=== PATIENT | male | born 1945 | race Caucasian/White ===

== ENCOUNTER → 2018-09-19 10:51 | Outpatient (CLI) | payer OTHER, SELFPAY ==
--- NOTE | 2018-09-26 16:28 | PM.PFT.1 ---
Pulmonary Function Test Referral & Results Date Patient Seen: 09/19/18 Requesting provider: Mauricio Quinones Indication: Dyspnea Results: The spirometry demonstrates an FVC of 2.84 L which is 54% of predicted. The FEV1 was measured at 2.38 L which is 62% of predicted. The FEV1/FVC ratio was 80 for which is 114% of predicted. Following the administration of bronchodilator there was no appreciable change. Lung volumes show an SVC of 3.02 L which is 57 of predicted. The diffusing capacity was measured at 27.20 which is 69% of predicted. No hemoglobin value was provided, so no correction for potential anemia could be made, if appropriate. The maximum voluntary ventilation was normal Interpretation: This study demonstrates moderate obstructive lung disease based on reduction in FEV1 with no significant benefit following bronchodilator administration There is also moderate restrictive lung disease present. There is also a moderate reduction in diffusing capacity suggesting an element of disease at the capillary alveolar level Clinical correlation suggested
== END ==
PROVIDERS: Family Provider Family Medicine; PCP Family Medicine; Visit Provider Family Medicine
DX: R06.00 Dyspnea, unspecified (principal); E66.9 Obesity, unspecified
CPT/HCPCS: 94060; 94726; 94729

== ENCOUNTER → 2018-10-06 10:21 | Outpatient (CLI) | payer OTHER, SELFPAY ==
--- NOTE | 2018-10-06 | DI.RAD.S_ITS ---
PROCEDURE: XR CHEST 2V INDICATIONS: SHORTNESS OF BREATH TECHNIQUE: 2 views of the chest were acquired. COMPARISON: DARWIN Thompson, XR CHEST 2 VIEWS, 12/11/2017, 16:35. FINDINGS: Surgical changes and devices: None. Lungs and pleura: There is chronic right hemidiaphragm elevation, unchanged. Lungs are clear. No pleural effusions or pneumothorax. Mediastinum: Mediastinal contours are normal. Heart size is normal. Bones and chest wall: No suspicious bony abnormalities. Soft tissues appear unremarkable. IMPRESSION: No acute cardiopulmonary disease. Chronic right hemidiaphragm elevation. Dictated by: Charo Easley M.D. on 10/06/2018 at 10:54 Approved by: Charo Easley M.D. on 10/06/2018 at 11:00
== END ==
PROVIDERS: Family Provider Internal Medicine Critical Care Medicine; PCP Family Medicine; Visit Provider Family Medicine
DX: R06.02 Shortness of breath (principal)
CPT/HCPCS: 71046

== ENCOUNTER → 2019-02-16 15:37 | Outpatient (CLI) | payer OTHER, SELFPAY ==
[2018-12-02 16:02] VITALS: BMI 39.9
--- NOTE | 2019-02-16 | DI.RAD.S_ITS ---
PROCEDURE: XR SHOULDER RT MIN 2V INDICATIONS: RIGHT SHOULDER PAIN TECHNIQUE: 3 views of the shoulder were acquired. COMPARISON: None. FINDINGS: Bones: No fractures or dislocations. No suspicious bony lesions. Visualized ribs appear intact. There are mild degenerative changes of the right acromioclavicular and glenohumeral joints. Soft tissues: No suspicious soft tissue calcifications. Partially imaged cardiac pacer wires are identified. IMPRESSION: Mild degenerative changes of the right acromioclavicular and glenohumeral joints. Dictated by: Damon Harkins M.D. on 02/16/2019 at 16:57 Approved by: Damon Harkins M.D. on 02/16/2019 at 16:59
== END ==
PROVIDERS: Family Provider Internal Medicine Critical Care Medicine; PCP Family Medicine; Visit Provider Family Medicine
DX: M19.011 Primary osteoarthritis, right shoulder (principal); M25.511 Pain in right shoulder
CPT/HCPCS: 73030

== ENCOUNTER 2019-03-09 14:00 | Outpatient (RCR) | payer OTHER, SELFPAY ==
[2018-12-02 16:02] VITALS: BP 124/72; BP 124/74; RESP 16; O2SAT 94; BMI 39.9
--- NOTE | 2018-12-02 16:25 | PR.IEVALNOTE ---
Current Diagnoses Shortness of breath (12/02/18) Provider Team Visit Care Team Role Provider Type Doctor MD Petra Non-Staff Specialty: Medical Address: Phone: Fax: Email: Mauricio Quinones MD Primary Care Provider Physician Specialty: Family Practice Address: [address] [place], [address] Email: Nati Montejo MD Attending Provider Non-Staff Family Provider Specialty: Pulmonology Address: [address] [place] [address], [phone] Email: Pulmonary Rehab Initial Evaluation [place] Pulmonary Rehab Inital Assessment Start: 12/02/18 16:02 Freq: Status: Active Protocol: Document 12/02/18 16:02 [facility] (Rec: 12/02/18 16:25 Tres [id number]) [place] Exercise Assessment Dx: Asthma/COPD Comment semi paralysis right diaphragm Primary Language FRENCH Gm Required No Hearing Ability Normal Visual Impairment No Limitations Visual Difficutly None Visual Assist Magnifying Glass Musculoskeletal Symptoms Abnormal Gait Difficulty Walking Joint Pain Muscle Weakness Body Alignment Posture Forward Head Leaning Rigid Assistive Devices None Comment no current exercise [place] Vital Signs Pulse Oximetry (91-100 %) 94 Nasal Cannula No Respiratory Rate (12-24 breaths/min) 16 Respiratory Effort Non-Labored Respiratory Depth Normal Assessment clear to auscultation no wheezes, rhonchi, crackles right lower lobe decreased Right Arm Blood Pressure (90/60-140/90 mmHg) 124/72 Blood Pressure Method Manual Cuff/Auscultation Blood Pressure Position Sitting Left Arm Blood Pressure (90/60-140/90 mmHg) 124/74 Blood Pressure Method Manual Cuff/Auscultation Blood Pressure Position Sitting [place] Six Minute Walk Test Oxygen Delivery Method Room Air Respiratory Rate (breaths/min) 16 Pulse Rate (beats/min) 66 O2 Saturation by Pulse Oximetry (%) 94 Pulse Rate (beats/min) 85 Ambulation Distance (feet) 200 O2 Saturation by Pulse Oximetry (%) 92 Pulse Rate (beats/min) 91 Ambulation Distance (feet) 200 O2 Saturation by Pulse Oximetry (%) 91 Pulse Rate (beats/min) 89 Ambulatory Distance (feet) 150 O2 Saturation by Pulse Oximetry (%) 92 Respiratory Rate (breaths/min) 22 Pulse Rate (beats/min) 89 Ambulation Distance (feet) 100 O2 Saturation by Pulse Oximetry (%) 91 Respiratory Rate (breaths/min) 24 Pulse Rate (beats/min) 90 Ambulation Distance (feet) 100 O2 Saturation by Pulse Oximetry (%) 91 Respiratory Rate (breaths/min) 24 PUlse Rate (beats/min) 105 Ambulation Distance (feet) 50 O2 Saturation by Pulse Oximetry (%) 89 Respiratory Rate (breaths/min) 18 Pulse Rate (beats/min) 78 O2 Saturation by Pulse Oximetry (%) 94 Activity Tolerance Poor Adverse Reactions Pulse Increase > 20 bpm Increased Shortness of Breath Musculoskeletal Pain Unsteady Gait Staggering Distance 850 Darlene RPE Scale 15 Oriented to RPE Scale Yes Dyspnea 5 Oriented to Dyspnea Scale Yes [place] Exercise Goals Exercise Goals progression of exercise training will result from increases in time, intensity, and frequency.Initial emphasis will be on increasing time Exercise Goals Demonstrate proper technique with pursed lip breathing demonstrate paced breathing techniques with ADL's on stairs, etc demonstrate proper technique with respiratory medications DASI Number and Comment 5.27 Short Term improve stamina and core strength 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 Volume/Forced Vital Cap 84 Ratio (FEV1/FVC Ratio) Forced Expiratory Volume in 1 sec. 2.38 62% Diffusing Capacity of the Lung (DLCO) 69 History of Diabetes Yes Type Type 2 Oral Diabetic Medication Agents metformin 599mg in AM On Insulin No Glucose Monitoring No Admit Height 190.5 cm Admit Weight 145.15 kg Admit Body Mass Index (BMI) 39.9 Liters Per Minute at Rest ra Liters per Minute with ADL's ra Liters per Minute with Sleep ra Liters per Minute with Exercise ra Oxygen Intervention/Education ra High Energy Periods Mid-Morning Afternoon Mid-Afternoon Tolerates Activity Poor Signs and Symptoms Activity Intolerance Dyspnea on Exertion Fatigue on Exertion Weakness on Exertion Daytime Naps Yes NC Education Pre-Test Score 79% Tobacco Use Former, Quit >6 Months Use Yes Concerns None Education Topics Breathing Retraining Discussed Education Requirements on Yes Intake [place] Psychosocial Initial Assess HADS Score 12 HADS Score 3 Marital Status Physician Comment Ready for Pulmonary Rehabilitation Cooperative Motivated
[2019-02-05 16:19] VITALS: BMI 38.9
--- NOTE | 2019-02-05 16:26 | PR.REVALNOTE ---
Current Diagnoses Shortness of breath (02/05/19) Provider Team Visit Care Team Role Provider Type Doctor MD Petra Non-Staff Specialty: Medical Address: Phone: Fax: Email: Mauricio Quinones MD Primary Care Provider Physician Specialty: Family Practice Address: [address] [place], [address] Email: Nati Montejo MD Attending Provider Non-Staff Family Provider Specialty: Pulmonology Address: [address] [place], [phone] Email: Pulmonary Rehab Re-Evaluation [place] Pulmonary Rehab. Re-Assessment Start: 12/02/18 16:02 Freq: Status: Active Protocol: Document 01/21/19 13:33 [facility] (Rec: 01/21/19 13:34 [facility] [id number]) [place] Exercise Re-Assessment New Session Number 1-12 Type Treadmill DESTINI Interval Training Yes Shortness of Breath with Exercise Yes Desaturation with Exercise No [place] Education Re-Assessment Goals Pt will Master PLB and Diaphragmatic Breathing Pt will Master Energy Conserving Techniques Pt will learn exercise safety Pt will continue ED topics until completion Document 02/05/19 16:19 [facility] (Rec: 02/05/19 16:26 [facility] [id number]) [place] Exercise Re-Assessment New Session Number 12-24 Type Treadmill DESTINI METs (resistance level) 3.12 destini 5.29 TM % Improvement 71% TM 14%DESTINI Interval Training Yes: 6.79 DESTINI Shortness of Breath with Exercise Yes Desaturation with Exercise No Free Weight Yes Band Level Yes [place] Nutrition Re-Assessment Height 190.5 cm Weight 141.521 kg Current BMI (BMI) 38.9 Progress to Weight Goal Yes: 8 LBS LOSS Goals Pt will continue focusing on weight loss Pt will continue to learn tips [place] Education Re-Assessment Topics Normal Anatomy and Physiology Chronic Lung Disease Description and Interpretation Medical Tests Breathing Retraining Bronchial Hygiene Medication Benefits of Exercise Eating Right Goals Pt will Master PLB and Diaphragmatic Breathing Pt will Master Energy Conserving Techniques Pt will learn exercise safety Pt will continue ED topics until completion [place] Psychosocial Re-Assessment Patient in Class Regularly Yes Interventions Pt attending class regularly Goals Pt will continue to attend classes 3x wk Participate in social and educational discussion Received emotional support from family/friends
--- NOTE | 2019-03-10 11:22 | PR.DCNOTE ---
Current Diagnoses Shortness of breath (03/09/19) Past Medical History (Last Reviewed 03/04/19 @ 12:46 by Yariel Nesbitt MD) Anemia (Acute) Hemorrhoids (Acute) DJD (degenerative joint disease) (Chronic) Diabetes (Chronic) GERD (gastroesophageal reflux disease) (Chronic) HTN (hypertension) (Chronic) History of atrial fibrillation (Chronic) History of depression (Chronic) Hx of cardiac pacemaker (Chronic) Hx of cardiovascular disorder (Chronic) Hx of kidney disease (Chronic) Hx of lung disease (Chronic) Hx of obesity (Chronic) Hyperlipidemia (Chronic) Migraine (Chronic) Sleep apnea (Chronic) Provider Team Visit Care Team Role Provider Type Doctor MD Petra Non-Staff Specialty: Medical Address: Phone: Fax: Email: Mauricio Quinones MD Primary Care Provider Physician Specialty: Family Practice Address: [facility] [place], [address] Email: [email or web address] Nati Montejo MD Attending Provider Non-Staff Family Provider Specialty: Pulmonology Address: [address] [place] [address], [phone] Email: Pulmonary Rehab Discharge Evaluation [place] Pulmonary Rehab. [place] Assessment Start: 12/02/18 16:02 Freq: Status: Active Protocol: Document 03/09/19 16:00 [facility] (Rec: 03/09/19 16:00 [facility] [id number]) [place] Exercise Discharge Assess Session 2 Type DESTINI METs (resistance level) 4.16 % Improvement 56% Interval Training Yes: 14.00 Mets Shortness of Breath with Exercise Yes Desaturation with Exercise No Session 1 Type Treadmill METs (resistance level) 3.47 % Improvement 47% Interval Training Yes: 6.61 Mets Shortness of Breath with Exercise Yes: semi-paralysis of hemidiaphragm Desaturation with Exercise No Free Weight Yes: #5 12r 2s Band Level Yes: #5 Toward Target Goals increased participation in physical activities, including domestic and recreational activities (ie:resumed playing golf) improved functional capacity with improved endurance and strength [place] Nutrition DC Assessment Weight 142.428 kg Weight Goal Met No: pt continues to progress towards goal Goals Pt will continue focusing on weight gain Pt will continue to learn tips Patient Ready Yes Reason Completed Max Sessions [place] Education DC Assessment Tobacco Use No [place] Psychosocial DC Assessment HADS Depression Score 7 HADS Anxiety Score 2 Phase III Yes Referral Needed No Goals Demonstrates proper technique with PLB-goal met Demonstrates breath sequencing with ADL's, stairs,etc.-goal met Demonstrates proper technique with respiratory medications- goal met Verbalized understanding of Asthma Action Plan-goal met [place] Six Minute Walk Test Oxygen Delivery Method Room Air Respiratory Rate (breaths/min) 14 Pulse Rate (beats/min) 60 O2 Saturation by Pulse Oximetry (%) 95 Pulse Rate (beats/min) 78 Ambulation Distance (feet) 200 O2 Saturation by Pulse Oximetry (%) 98 Pulse Rate (beats/min) 78 Ambulation Distance (feet) 200 O2 Saturation by Pulse Oximetry (%) 98 Pulse Rate (beats/min) 86 Ambulatory Distance (feet) 200 O2 Saturation by Pulse Oximetry (%) 98 Pulse Rate (beats/min) 89 Ambulation Distance (feet) 200 O2 Saturation by Pulse Oximetry (%) 88 Respiratory Rate (breaths/min) 20 Pulse Rate (beats/min) 94 Ambulation Distance (feet) 150 PUlse Rate (beats/min) 96 Ambulation Distance (feet) 200 O2 Saturation by Pulse Oximetry (%) 94 Respiratory Rate (breaths/min) 16 Pulse Rate (beats/min) 68 O2 Saturation by Pulse Oximetry (%) 94 Activity Tolerance Good Adverse Reactions Increased Shortness of Breath Distance 1150 Darlene RPE Scale 13 Oriented to RPE Scale Yes Dyspnea 4 Oriented to Dyspnea Scale Yes
== END 2019-03-11 10:49 | disposition home or self-care (01) ==
LOC: PUL 14:00
PROVIDERS: Family Provider Internal Medicine Critical Care Medicine; PCP Family Medicine; Visit Provider Internal Medicine Critical Care Medicine
DX: R06.02 Shortness of breath (principal)
CPT/HCPCS: G0424

== ENCOUNTER 2019-04-17 14:50 | Day surgery (SDC) | payer OTHER, SELFPAY ==
[2018-12-02 16:02] VITALS: BMI 39.9
--- NOTE | 2019-04-17 | PATH_ITS ---
[facility] Accession Number: [id number] . 01 Material submitted: . PART A: duodenum - DUODENUM BIOPSIES PART B: gastrointestinal site - ANTRUM BIOPSIES PART C: gastrointestinal site - FUNDUS BIOPSIES PART D: esophagus, E-G Junction - GE JUNCTION 6 O'CLOCK PART E: esophagus, E-G Junction - GE JUNCTION 9 O'CLOCK PART F: esophagus, E-G Junction - GE JUNCTION 3 O'CLOCK PART G: esophagus, E-G Junction - GE JUNCTION 12 O'CLOCK PART H: gastrointestinal site - BODY BIOPSIES . 02 Diagnosis: A. Duodenum, Biopsies: Duodenal mucosa with foveolar metaplasia, consistent with peptic duodenitis. Negative for active inflammation, features of sprue, dysplasia or malignancy. . B. Antrum, Biopsies: Superficial fragments of gastric antral mucosa with no diagnostic abnormality. No evidence of Helicobacter organisms on H/E stain. Negative for intestinal metaplasia, dysplasia or malignancy. . C. Fundus, Biopsies: Gastric body-type mucosa with minimal chronic inflammation. No evidence of Helicobacter organisms on H/E stain. Negative for intestinal metaplasia, dysplasia or malignancy. . D. Gastroesophageal Junction, 6 o'clock, Biopsy: Squamous epithelium with no diagnostic abnormality. Columnar mucosa not sampled. Negative for dysplasia or malignancy. . E. Gastroesophageal Junction, 9 o'clock, Biopsy: Squamocolumnar junctional mucosa with no diagnostic abnormality. Negative for specialized intestinal metaplasia, dysplasia or malignancy. . F. Gastroesophageal Junction, 3 o'clock, Biopsy: Squamous epithelium with no diagnostic abnormality. Columnar mucosa not sampled. Negative for dysplasia or malignancy. . G. Gastroesophageal Junction, 12 o'clock, Biopsy: Squamous epithelium with mild chronic inflammation, consistent with reflux esophagitis. Columnar mucosa not sampled. Negative for dysplasia or malignancy. . H. Body, Biopsies: Gastric body-type mucosa with minimal chronic inflammation. No evidence of Helicobacter organisms on H/E stain. Negative for intestinal metaplasia, dysplasia or malignancy. [facility] 04/20/2019 1532 Local . 02 Electronically signed: . Ezio Balbuena MD, PhD, Pathologist NPI- [id number] . 01 Gross description: . (A) Received in formalin, labeled duodenum biopsies, is a fragment of garcia tissue (0.4 x 0.2 by less than 0.1 cm). Entirely submitted in cassette A1. (B) Received in formalin, labeled antrum biopsy, is a fragment of garcia tissue (0.2 x 0.1 by less than 0.1 cm). Entirely submitted in cassette B1. (C) Received in formalin, labeled fundus biopsy, is a fragment of crane-garcia tissue (0.3 x 0.1 by less than 0.1 cm). Entirely submitted in cassette C1. (D) Received in formalin, labeled GE junction 6 o'clock, are multiple fragments of crane-white tissue (0.2 x 0.1 by less than 0.1 cm in aggregate). Entirely submitted in cassette D1. (E) Received in formalin, labeled GE junction 9 o'clock, is a fragment of crane-white tissue (0.2 x 0.1 by less than 0.1 cm). Filtered and entirely submitted in cassette E1. (F) Received in formalin, labeled GE junction 3 o'clock, is a fragment of crane-white tissue (0.2 by less than 0.1 by less than 0.1 cm). Filtered and entirely submitted in cassette F1. (G) Received in formalin, labeled GE junction 12 o'clock, is a fragment of crane-white tissue (0.2 by less than 0.1 by less than 0.1 cm). Filtered and entirely submitted in cassette G1. (H) Received in formalin, labeled body biopsies, are multiple fragments of garcia tissue (0.3 x 0.2 x 0.1 cm in aggregate). Filtered and entirely submitted in cassette H1. ([id number]) /MRV 04/18/20192058 Local . 02 Pathologist provided ICD-10: K92.1, K21.9, K29.70 . 02 CPT . 059088, [id number], 665963, 657966, 445061, 789854, [id number], [id number] Performed at: 01 [facility] [address] [id number] MD Mann Lucero MD Phone: [phone] Performed at: [address] [facility] [id number] [place], [place] [id number] MD Kae Hooker MD Phone: [phone]
[2019-04-17 15:18] VITALS: BP 131/68; PULSE 65; RESP 15; TEMP 36.1; O2SAT 97; BMI 36.8
--- NOTE | 2019-04-17 15:25 | PM.PREOP ---
Pre-operative Note Interval Note History & Physical reviewed/Exam performed by Physician: Yes Changes to H&P: No ASA Class (for procedural sedation): III
--- NOTE | 2019-04-17 15:26 | PM.OP.ENDO ---
Operative Date/Time/Diagnoses Date of procedure: 04/17/19 Time of procedure: 15:26 Pre-op diagnosis: 1. Anemia, acute blood loss Post-op diagnosis: other (1. Peptic ulcer disease, 2. Hiatal hernia, moderate, 3. Irregular Z-line) Procedure & Clinicians Study performed: EGD Same procedure as scheduled: Yes Indications: Anemia, acute blood loss Surgeon: Veronica Wells Procedure Notes Procedure in detail: ENDOSCOPIST: Veronica Wells MD ANESTHESIOLOGIST: Kevin Okeefe MD PROCEDURE: EGD with biopsy INDICATIONS: 1. Acute blood-loss anemia MEDICATION: general anesthesia ASA Ratin DURATION OF PROCEDURE: 19 minutes. COMPLICATIONS: None. LIMITATIONS: None EXTENT OF PROCEDURE: Third portion of the Duodenum. PROCEDURE: The high-definition gastroduodenoscope was introduced into the posterior oropharynx under direct vision after general anesthesia was achieved and proper informed consent taken. The esophagus was identified and intubated under direct visualization. The scope was quickly passed through the esophagus and into the fundus of the stomach. A clear fundal pool was aspirated. The scope was then advanced to the antrum and the pylorus was identified. The scope was passed through the pylorus into the second and third portions of the duodenum. No abnormalities were noted in the duodenum, duodenal bulb or pyloric channel. Random biopsy taken x2. The antrum had superficial hyperemia and ulcers at very stages of healing, none actively bleeding; targeted biopsies taken near base of ulcers x2. J maneuver was produced. Peptic ulcer disease continued throughout the proximal body, fundus and cardia, targeted biopsies taken x2. A moderate-sized hiatal hernia was noted. Scope was broken out of the J maneuver and the remainder of the stomach was carefully inspected upon withdrawal and was significant for superficial hyperemia. The stomach was carefully deflated of all air on withdrawal. The distal esophagus was carefully inspected and Z-line was noted to be irregular, 4 quadrant biopsies taken. The remainder of the esophagus was normal upon withdrawal. The larynx and vocal cords appeared to be unremarkable. IMPRESSION: 1. Peptic ulcer disease, antrum, body, fundus 2. Gastritis 3. Hiatal hernia, moderate 4. Irregular Z-line with endoscopically suspicious esophageal mucosa, C2M4 PLAN: 1. Follow-up in clinic status post pathology results. 2. Recommend omeprazole 40 mg p.o. b.i.d., 30 minutes prior to meals x 6 weeks. May need triple therapy for H pylori disease after biopsies return. Will discuss in detail at time of follow-up. The possibility of missed lesion including a malignancy was discussed prior with the patient. Potential alarm symptoms have been discussed and should be reported by the patient immediately.
[2019-04-17] MEDS: HYOSCYAMINE 0.125 MG TABLET PO (15:28)
[2019-04-17] MEDS: SODIUM CHLORIDE 0.9% 1,000 ML 200 ML IV (15:28)
--- NOTE | 2019-04-17 15:33 | PM.OP.ENDO ---
Operative Date/Time/Diagnoses Date of procedure: 04/17/19 Time of procedure: 16:27 Pre-op diagnosis: 1. Anemia, acute blood loss 2. Hemorrhoids 3. Screening for colon cancer Post-op diagnosis: other (1. Normal colonoscopy, 2., diverticulosis, sigmoid, moderate 3. External hemorrhoids, nonthrombosed ) Procedure & Clinicians Study performed: Colonoscopy Same procedure as scheduled: Yes Indications: 1. Anemia, acute blood loss 2. Hemorrhoids 3. Screening for colon cancer Surgeon: Veronica Wells Procedure Notes SCOAP/Timeout: 15:54 Procedure in detail: ENDOSCOPIST: Veronica Wells MD ANESTHESIOLOGIST: Kevin Okeefe MD PROCEDURE: Colonoscopy INDICATIONS: 1. Anemia, acute blood loss 2. Hemorrhoids 3. Screening for colon cancer 4. History of colon polyps MEDICATION: Levsin 0.125 mg sublingual, incremental doses of Versed and fentanyl until appropriate level sedation achieved. ASA CLASS: 3 CECAL WITHDRAWAL TIME: 11 minutes COMPLICATIONS: None. EXTENT OF PROCEDURE: Cecum. QUALITY OF PREP: Good with portions of liquid stool. PROCEDURE: Prior to insertion of the colonoscope, a digital rectal examination was accomplished with circumferential palpation of the distal rectal mucosa without significant findings being noted. The high-definition colonoscope was passed into the rectum in the usual fashion and advanced over to the cecum without difficulty. The ileocecal valve, appendiceal stoma, and medial wall all could be inspected and no abnormalities were seen. ASCENDING COLON: As the colonoscope was withdrawn, care was taken to expose and inspect the haustral folds and no abnormalities were seen. HEPATIC FLEXURE: Normal no polyps, diverticula or other abnormalities. TRANSVERSE COLON: Normal no polyps, diverticula or other abnormalities. DESCENDING COLON: Normal no polyps, diverticula or other abnormalities. SIGMOID COLON: Moderate diverticulosis, otherwise no or other abnormalities. RECTUM: Normal. There was no significant perianal disease. The remainder of the rectum was inspected and there was minor external hemorrhoid disease. The scope was withdrawn. IMPRESSION: 1. Normal colonoscopy 2. Diverticulosis, sigmoid colon, moderate 3. External hemorrhoid disease, non-thrombosed 4. No endoscopic evidence for acute GI bleed in the lower intestinal tract. PLAN: 1. No endoscopic evidence for acute GI bleed in the lower intestinal tract. 2. Secondary to history of colon polyps, repeat colonoscopy in 5 years. The possibility of a missed lesion including a malignancy has been discussed with the patient previously. Potential alarm symptoms have been discussed and should be reported immediately. Scope withdrawal time: 11 minutes Sedation minutes: 35 Findings: diverticulosis and polyp Complications: none Impression: As above. Post-procedure Recommendations: Colonscopy in 5 years Follow up: weeks (2) Disposition: PACU
[2019-04-17 17:00] VITALS: BP 132/72; PULSE 60; RESP 17; TEMP 36.2; O2SAT 95
[2019-04-17 17:05] VITALS: BP 135/76; PULSE 60; RESP 13; O2SAT 94
[2019-04-17 17:10] VITALS: BP 135/76; PULSE 60; RESP 17; O2SAT 95
[2019-04-17 17:15] VITALS: BP 140/77; PULSE 60; RESP 14; O2SAT 96
--- NOTE | 2019-04-17 17:50 | SUR.PHASEII ---
pt was ready to discharge to home at 1720. Dr. Wells had long conversation with pt and (25 minutes) prior to leaving department
== END 2019-04-17 17:45 | disposition home or self-care (01) ==
PROVIDERS: Family Provider Internal Medicine Critical Care Medicine; PCP Family Medicine; Visit Provider Student in an Organized Health Care Education/Training Program
PROC: 0DJ08ZZ Inspection of Upper Intestinal Tract, Via Natural or Artificial Opening Endoscopic (ICD-10-PCS; CPT 43235; principal; 2019-04-17 16:00)
PROC: 0DJD8ZZ Inspection of Lower Intestinal Tract, Via Natural or Artificial Opening Endoscopic (ICD-10-PCS; CPT 45378; 2019-04-17 16:00)
DX: K29.70 Gastritis, unspecified, without bleeding (principal); D62 Acute posthemorrhagic anemia; K64.4 Residual hemorrhoidal skin tags; Z86.010 Personal history of colon polyps; K57.30 Diverticulosis of large intestine without perforation or abscess without bleeding; K25.9 Gastric ulcer, unspecified as acute or chronic, without hemorrhage or perforation; K44.9 Diaphragmatic hernia without obstruction or gangrene; K21.9 Gastro-esophageal reflux disease without esophagitis
CPT/HCPCS: 43239; 45378; J2704; J3010

== ENCOUNTER → 2019-07-02 10:26 | Outpatient (CLI) | payer OTHER, SELFPAY ==
[2018-12-02 16:02] VITALS: BMI 39.9
[2019-07-02 13:09] LABS: Thyroid Stimulating Hormone 1.48 uIU/mL (0.47-4.68)
[2019-07-04 13:27] LABS: IGA 142 mg/dL (70-320); IGG 1159 mg/dL (600-1540); IGM 65 mg/dL (50-300)
[2019-07-06 21:24] LABS: Protein, Total 6.7 g/dL (6.1-8.1)
[2019-07-07 14:39] LABS: Albumin 100 %; Protein/ Creatinine Ratio 148 mg/g creat (22-128); Total Urine Protein 10 mg/dL (5-25); Urine Creatinine, Random 68 mg/dL (20-320); Urine Protein Interpretation Normal pattern.
[2019-07-07 14:40] LABS: Albumin 3.8 g/dL (3.8-4.8); Alpha 1 Globulin 0.3 g/dL (0.2-0.3); Alpha 2 Globulin 0.8 g/dL (0.5-0.9); Beta 1 Globulin 0.5 g/dL (0.4-0.6)
== END ==
PROVIDERS: PCP Family Medicine; Visit Provider Psychiatry & Neurology Neurology
DX: G62.9 Polyneuropathy, unspecified (principal)
CPT/HCPCS: 36415; 82784; 84155; 84156; 84165; 84166; 84443

== ENCOUNTER → 2019-08-04 13:52 | Outpatient (CLI) | payer OTHER, SELFPAY ==
[2018-12-02 16:02] VITALS: BMI 39.9
--- NOTE | 2019-08-04 | DI.RAD.S_ITS ---
PROCEDURE: XR KNEE STANDING BI INDICATIONS: BILATERAL KNEE PAIN FREQENT FALLS TECHNIQUE: 3 views of the right knee, and 3 views of the left knee. COMPARISON: [facility], KNEE 3VW (LT), 11/08/2014, 8:44. [facility], CR, KNEE 4V RIGHT, 06/13/2012, 9:34. 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 Bilateral knee arthroplasties are present. Hardware is intact without evidence of hardware fracture or periprosthetic loosening. Soft tissues: Mild left effusion. No suspicious soft tissue calcification. IMPRESSION: Bilateral knee arthroplasties as well as mild left effusion as above. Dictated by: Karol Casiano M.D. on 08/04/2019 at 16:30 Approved by: Karol Casiano M.D. on 08/04/2019 at 16:32
== END ==
PROVIDERS: PCP Family Medicine; Visit Provider Family Medicine
DX: M25.561 Pain in right knee (principal); M25.562 Pain in left knee; M25.462 Effusion, left knee; R29.6 Repeated falls; Z96.653 Presence of artificial knee joint, bilateral
CPT/HCPCS: 73565

== ENCOUNTER 2020-02-26 08:01 | Inpatient (IN) | payer OTHER, SELFPAY ==
[2018-12-02 16:02] VITALS: BMI 39.9
[2020-02-26] VITALS (42 sets, daily range): BP systolic 83–226; BP diastolic 41–118; PULSE 68–83; RESP 10–37; TEMP 36.4–37.2; O2SAT 83–100; BMI 39.5; BMI 38.9
--- NOTE | 2020-02-26 08:15 | ED_ITS ---
HPI - SOB/Dyspnea General Chief Complaint: Shortness of Breath/Dyspnea Stated Complaint: SOB Time Seen by Provider: 02/26/20 08:15 Source: patient and EMS Mode of arrival: EMS Limitations: no limitations History of Present Illness HPI Narrative: The patient complains of progressive, severe dyspnea. He has history of CHF as well as COPD. As the dyspnea is increased, he has become dramatically worse this morning. He has no fever or chills. He denies chest pain. He has orthopnea associated with the dyspnea. He does not have any significant increase in peripheral edema. He has no GI symptoms. He has no uri nary complaints. He has edema to lower extremities, no calf tenderness. He has had no hemoptysis. He is unaware of any exposure to COVID-19. The patient later adds that he has experienced a 30 lb weight gain in recent weeks. Although he generally has a mild, dry cough, he has developed significant apparently cough the last 2 days. Related Data Home Medications Medication Instructions Recorded Confirmed albuterol sulfate 90 mcg/actuation 1 puff INHALATION Q6H PRN 03/04/19 02/26/20 aerosol inhaler aspirin 81 mg tablet,delayed 81 mg PO DAILY 03/04/19 04/17/19 release atorvastatin 40 mg tablet 40 mg PO DAILY 03/04/19 02/26/20 flecainide 100 mg tablet 100 mg PO Q12H 03/04/19 02/26/20 fluticasone furoate 50 50 mcg INHALATION BID each 03/04/19 04/17/19 mcg/actuation blister powder for inhalation furosemide 20 mg tablet 20 mg PO DAILY 03/04/19 02/26/20 indomethacin 50 mg capsule 50 mg PO BID 03/04/19 02/26/20 labetalol 300 mg tablet 300 mg PO BID 03/04/19 04/17/19 sertraline 50 mg tablet 50 mg PO DAILY 03/04/19 04/17/19 sildenafil 50 mg tablet 50 mg PO DAILY PRN 03/04/19 04/17/19 tamsulosin [Flomax] 0.4 mg PO DAILY 04/17/19 04/17/19 Melatonin (with B6) 10 cap/day PO PCHS 02/26/20 02/26/20 apixaban [Eliquis] 5 mg PO 02/26/20 magnesium chloride 65 mg PO DAILY 02/26/20 02/26/20 Allergies Allergy/AdvReac Type Severity Reaction Status Date / Time hydrochlorothiazide AdvReac Severe LEG CRAMPS Verified 04/17/19 15:11 [From MAXZIDE] triamterene [From MAXZIDE] AdvReac Severe LEG CRAMPS Verified 04/17/19 15:11 Review of Systems Constitutional Constitutional: Reports system reviewed and no additional complaints, except as documented, Denies body ache(s), Denies chills, Reports fatigue, Denies fever(s) and Denies headache(s) Eyes Eyes: Denies change in vision ENT Ears, Nose, Mouth, and Throat: Denies vertigo, Denies dizziness, Denies dry mouth, Denies headache(s), Denies mouth lesions, Denies neck pain and Denies sore throat Cardiovascular Cardiovascular: Denies chest pain, Denies syncope, Reports pedal edema, Denies lightheadedness, Reports dyspnea and Reports dyspnea on exertion Respiratory Respiratory: Reports cough, Reports excessive phlegm production, Reports dyspnea and Reports dyspnea on exertion Gastrointestinal Gastrointestinal: Denies abdominal pain, Denies change in bowel habits, Denies diarrhea, Denies nausea and Denies vomiting Genitourinary Comments: No complaints Musculoskeletal Musculoskeletal: Denies neck pain Comments: He lower extremity edema. Integumentary/Breasts Skin/Breast: Denies erythema and Denies rash Neurologic Neurologic: Denies confusion, Denies vertigo, Denies dizziness, Denies syncope and Denies headache(s) Psychiatric Psychiatric: Denies anxiety, Denies confusion and Denies depression Endocrine Endocrine: Reports fatigue Patient History Medical History Anemia (Acute) Diabetes (Chronic) DJD (degenerative joint disease) (Chronic) GERD (gastroesophageal reflux disease) (Chronic) Hemorrhoids (Acute) History of atrial fibrillation (Chronic) History of depression (Chronic) HTN (hypertension) (Chronic) Hx of cardiac pacemaker (Chronic) Hx of cardiovascular disorder (Chronic) Hx of kidney disease (Chronic) Hx of lung disease (Chronic) Hx of obesity (Chronic) Hyperlipidemia (Chronic) Migraine (Chronic) Sleep apnea (Chronic) Surgical History History of total right hip replacement (Resolved) Family History Brother Gallstones Social History marital status: household members: spouse occupational status: previously employed Smoking Status: Never smoker alcohol intake: never substance use type: does not use Smoking Status: Never smoker Exam Initial Vital Signs Initial Vital Signs: Vital Signs Pulse Rate 71 02/26/20 08:15 Respiratory Rate 35 H 02/26/20 08:15 Blood Pressure 182/118 H 02/26/20 08:15 Pulse Oximetry 83 L 02/26/20 08:15 Const Other: Diaphoretic, pale, tachypneic with obvious discomfort. HENMT Head: normocephalic and atraumatic Mouth: oral mucosae normal Throat: posterior oropharynx normal Eyes Conjunctivae: conjunctivae normal Neck Neck: No JVD Chest Chest: normal inspection of the chest Resp Other: Moderate bibasilar rales. Decreased breath sounds throughout. No wheezes. Cardio Rate: regular rate Rhythm: regular rhythm Heart Sounds: S1 normal, S2 normal, no click, no gallops, no murmurs and no rubs Pulses: normal peripheral pulses GI Inspection: non-distended Palpation: soft, no hepatosplenomegaly, No guarding, No pulsatile mass and No tender Auscultation: normal bowel sounds Back/Spine/Pelvis Back: No CVA tenderness Skin General: no rashes or lesions noted, No jaundice and No petechiae Neuro General: patient alert, patient oriented x3, gait normal and no focal motor deficits Speech: speech normal Extrem General: full ROM, no pedal edema and no calf tenderness Psych Appearance: well kempt Mental Status: mental status grossly normal Course Course Course Narrative: Patient arrived with dyspnea and hypoxia. He was treated aggressively with BiPAP, neb treatments, nitroglycerin and IV Lasix. For the COPD he was also given IV Solu-Medrol. A Browning was placed, he eventually had 4200 mL of urine out, he was weaned from BiPAP in the ER and is doing well on room air prior to admission. Additionally, he revealed the purulent cough for last couple days after his breathing had improved. He is COVID-19 negative. X- ray is consistent with bilateral pneumonia. He was started on Rocephin and Zithromax in addition to treatment for COPD and CHF. The on-call physician for his PCM, Dr. Armstrong has accepted the patient in admission. Orders Ordered: ED Orders 02/26/20 08:15 Consult to Respiratory Therapy Evaluate & Treat BiPAP Ventilatory Support RT PROTOCOL EKG-12 Lead Stat 02/26/20 08:17 XR chest 1V Stat 02/26/20 08:20 Complete Blood Count AUTO DIFF Stat Comprehensive Metabolic Panel Stat D Dimer Stat Lactate (Lactic Acid) Stat Magnesium Stat NT-proBNP (BNP-Adult 18+) Stat Procalcitonin Stat Prothrombin Time INR Stat Troponin & CK Cardiac Panel Stat Urinalysis and Microscopic Stat 02/26/20 08:33 Arterial Blood Gas Stat 02/26/20 09:20 Blood Culture Stat Ceftriaxone Sodium/Dextrose (Rocephin) 1 gm in 50 mls @ 100 mls/hr IV Q24H FAVIAN Last Admin: 02/26/20 13:23 Dose: 100 mls/hr Documented by: REILLY Discontinued Medications Albuterol (Proventil 0.5% Neb Solution) 20 mg INH CONT FAVIAN Stop: 02/26/20 09:16 Last Admin: 02/26/20 08:55 Dose: 20 mg Documented by: REILLY Furosemide (Lasix) 40 mg IV NOW ONE Stop: 02/26/20 08:16 Last Admin: 02/26/20 08:55 Dose: 40 mg Documented by: REILLY Furosemide (Lasix) 40 mg IV NOW ONE Stop: 02/26/20 09:17 Last Admin: 02/26/20 09:20 Dose: 40 mg Documented by: REILLY Azithromycin 500 mg/ Dextrose 250 mls @ 250 mls/hr IV NOW ONE Stop: 02/26/20 11:55 Last Infusion: 02/26/20 13:15 Dose: 250 mls/hr Documented by: Admin: 02/26/20 12:13 Dose: 250 mls/hr Documented by: REILLY Indomethacin (Indocin) 50 mg PO NOW ONE Stop: 02/26/20 12:47 Last Admin: 02/26/20 12:59 Dose: 50 mg Documented by: REILLY Methylprednisolone (Solu-Medrol 125 Mg Vial) 125 mg IV NOW ONE Stop: 02/26/20 08:16 Last Admin: 02/26/20 08:55 Dose: 125 mg Documented by: REILLY Nitroglycerin (Nitro-Bid) 1 inch TOP NOW ONE Stop: 02/26/20 08:16 Last Admin: 02/26/20 08:55 Dose: 1 inch Documented by: REILLY Vital Signs Vital signs: Vital Signs - 8 hr 02/26/20 08:15 02/26/20 08:18 02/26/20 08:30 Temperature 97.5 F L Pulse Rate 71 71 69 Respiratory Rate 35 H 30 H 37 H Blood Pressure 182/118 H 182/118 H 186/87 H Pulse Oximetry 83 L 88 L 95 02/26/20 08:45 02/26/20 09:00 02/26/20 09:06 Temperature Pulse Rate 69 69 69 Respiratory Rate 30 H 31 H 34 H Blood Pressure 198/94 H 193/98 H Pulse Oximetry 100 93 98 02/26/20 09:10 02/26/20 09:15 02/26/20 09:16 Temperature Pulse Rate 69 69 69 Respiratory Rate 33 H 36 H 37 H Blood Pressure 226/103 H 177/80 H Pulse Oximetry 97 99 100 02/26/20 09:30 02/26/20 09:45 02/26/20 10:00 Temperature Pulse Rate 69 69 68 Respiratory Rate 23 22 14 Blood Pressure 162/68 H 174/75 H Pulse Oximetry 99 99 100 02/26/20 10:09 02/26/20 10:15 02/26/20 10:30 Temperature Pulse Rate 69 70 70 Respiratory Rate 25 H 19 19 Blood Pressure 150/84 H 152/89 H 143/70 H Pulse Oximetry 100 99 99 02/26/20 10:45 02/26/20 11:00 02/26/20 11:15 Temperature Pulse Rate 83 73 78 Respiratory Rate 24 10 L 25 H Blood Pressure 139/67 146/70 H 138/77 Pulse Oximetry 95 84 L 93 02/26/20 11:30 02/26/20 11:45 02/26/20 12:00 Temperature Pulse Rate 76 76 77 Respiratory Rate 19 23 23 Blood Pressure 152/82 H 147/81 H 141/77 H Pulse Oximetry 93 94 95 02/26/20 12:15 02/26/20 12:16 Temperature Pulse Rate 76 78 Respiratory Rate 22 26 H Blood Pressure 148/73 H Pulse Oximetry MDM - SOB/Dyspnea Lab Data Result diagrams: 02/26/20 08:20 02/26/20 08:20 Labs: Lab Results 08/14/20 08/14/20 08/14/20 Range/Units 08:20 08:20 08:20 WBC 16.4 H (4.5-11.0) X10^3/uL RBC 4.46 L (4.5-5.9) X10^6/uL Hgb 13.7 (13.5-17.5) g/dL Hct 42.2 (41-53) % MCV 94.6 (80-100) fL MCH 30.7 (26-34) PG MCHC 32.5 (30-36) % RDW 14.2 (11.6-14.8) % Plt Count 265 (150-400) X10^3/uL Neut % (Auto) 69.1 (50-75) % Lymph % (Auto) 16.1 L (25-40) % [place] % (Auto) 13.1 (3-14) % Eos % (Auto) 1.2 L (2-4) % Baso % (Auto) 0.5 (0-2) % Neut # (Auto) 03458 H (1788-0359) /uL Lymph # (Auto) 2600 (7789-4376) /uL [place] # (Auto) 2100 H (0-900) /uL Eos # (Auto) 200 (0-450) /uL Baso # (Auto) 100 (0-100) /uL PT 13.0 H (10.1-12.7) SECONDS INR 1.1 (0.9-1.3) D-Dimer 455 H (<230) ng/mL ABG pH (7.35-7.45) ABG pCO2 (35-45) mmHg ABG pO2 (80-100) mmHg ABG HCO3 (22-26) mmol/L ABG Total CO2 (21-31) mmol/L ABG O2 Saturation (95-100) % ABG Base Excess (-2-2) mmol/L FiO2 Sodium (137-145) mmol/L Potassium (3.4-5.1) mmol/L Chloride (98-107) mmol/L Carbon Dioxide (22-32) mmol/L BUN (9-20) mg/dL Creatinine (0.66-1.25) mg/dL Estimated GFR (>60) mL/min BUN/Creatinine Ratio (6-22) Glucose (80-110) mg/dL Lactate (0.7-2.1) mmol/L Calcium (8.4-10.2) mg/dL Magnesium 2.4 H (1.6-2.3) mg/dL Total Bilirubin (0.2-1.3) mg/dL AST (17-59) IU/L ALT (<50) IU/L Alkaline Phosphatase (38-126) U/L Total Creatine Kinase 125 (55-170) U/L CK-MB (CK-2) 2.68 H (<2.37) ng/mL CK-MB (CK-2) Rel Index 2.1 (1.5-5.0) % Troponin I < 0.012 (0.01-0.034) ng/mL NT-Pro-B Natriuret Pep 1210 H (<125) pg/mL Total Protein (6.3-8.2) g/dL Albumin (3.5-5.0) g/dL Globulin (1.7-4.1) g/dL Albumin/Globulin Ratio (1.0-2.8) Procalcitonin (<0.5) ng/mL Urine Color Urine Appearance Urine pH (4.5-8.0) Ur Specific [place] (1.000-1.035) Urine Protein (Negative) Urine Glucose (UA) (Negative) g/dL Urine Ketones (NEGATIVE) Urine Occult Blood (Negative) Urine Nitrate (Negative) Urine Bilirubin (NEGATIVE) Urine Urobilinogen (0.2) E.U./dL Ur Leukocyte Esterase (NEGATIVE) Urine RBC (0-5/HPF) Urine WBC (0-5/HPF) Amorphous Sediment Urine Bacteria (None) Ur Culture Indicated? COVID-19 PCR (Negative) 02/26/20 02/26/20 02/26/20 Range/Units 08:20 08:20 08:20 WBC (4.5-11.0) X10^3/uL RBC (4.5-5.9) X10^6/uL Hgb (13.5-17.5) g/dL Hct (41-53) % MCV (80-100) fL MCH (26-34) PG MCHC (30-36) % RDW (11.6-14.8) % Plt Count (150-400) X10^3/uL Neut % (Auto) (50-75) % Lymph % (Auto) (25-40) % [place] % (Auto) (3-14) % Eos % (Auto) (2-4) % Baso % (Auto) (0-2) % Neut # (Auto) (7305-2128) /uL Lymph # (Auto) (6708-7456) /uL [place] # (Auto) (0-900) /uL Eos # (Auto) (0-450) /uL Baso # (Auto) (0-100) /uL PT (10.1-12.7) SECONDS INR (0.9-1.3) D-Dimer (<230) ng/mL ABG pH (7.35-7.45) ABG pCO2 (35-45) mmHg ABG pO2 (80-100) mmHg ABG HCO3 (22-26) mmol/L ABG Total CO2 (21-31) mmol/L ABG O2 Saturation (95-100) % ABG Base Excess (-2-2) mmol/L FiO2 Sodium 141 (137-145) mmol/L Potassium 4.9 (3.4-5.1) mmol/L Chloride 105 (98-107) mmol/L Carbon Dioxide 27 (22-32) mmol/L BUN 41 H (9-20) mg/dL Creatinine 1.45 H (0.66-1.25) mg/dL Estimated GFR 47.7 L (>60) mL/min BUN/Creatinine Ratio 28.3 H (6-22) Glucose 143 H (80-110) mg/dL Lactate 1.5 (0.7-2.1) mmol/L Calcium 9.5 (8.4-10.2) mg/dL Magnesium (1.6-2.3) mg/dL Total Bilirubin 1.0 (0.2-1.3) mg/dL AST 56 (17-59) IU/L ALT 63 H (<50) IU/L Alkaline Phosphatase 93 (38-126) U/L Total Creatine Kinase (55-170) U/L CK-MB (CK-2) (<2.37) ng/mL CK-MB (CK-2) Rel Index (1.5-5.0) % Troponin I (0.01-0.034) ng/mL NT-Pro-B Natriuret Pep (<125) pg/mL Total Protein 7.6 (6.3-8.2) g/dL Albumin 4.4 (3.5-5.0) g/dL Globulin 3.2 (1.7-4.1) g/dL Albumin/Globulin Ratio 1.4 (1.0-2.8) Procalcitonin < 0.05 (<0.5) ng/mL Urine Color Urine Appearance Urine pH (4.5-8.0) Ur Specific [place] (1.000-1.035) Urine Protein (Negative) Urine Glucose (UA) (Negative) g/dL Urine Ketones (NEGATIVE) Urine Occult Blood (Negative) Urine Nitrate (Negative) Urine Bilirubin (NEGATIVE) Urine Urobilinogen (0.2) E.U./dL Ur Leukocyte Esterase (NEGATIVE) Urine RBC (0-5/HPF) Urine WBC (0-5/HPF) Amorphous Sediment Urine Bacteria (None) Ur Culture Indicated? COVID-19 PCR (Negative) 02/26/20 02/26/20 02/26/20 Range/Units 08:20 08:20 08:33 WBC (4.5-11.0) X10^3/uL RBC (4.5-5.9) X10^6/uL Hgb (13.5-17.5) g/dL Hct (41-53) % MCV (80-100) fL MCH (26-34) PG MCHC (30-36) % RDW (11.6-14.8) % Plt Count (150-400) X10^3/uL Neut % (Auto) (50-75) % Lymph % (Auto) (25-40) % [place] % (Auto) (3-14) % Eos % (Auto) (2-4) % Baso % (Auto) (0-2) % Neut # (Auto) (0935-2452) /uL Lymph # (Auto) (9056-7604) /uL [place] # (Auto) (0-900) /uL Eos # (Auto) (0-450) /uL Baso # (Auto) (0-100) /uL PT (10.1-12.7) SECONDS INR (0.9-1.3) D-Dimer (<230) ng/mL ABG pH 7.30 L (7.35-7.45) ABG pCO2 54.8 H (35-45) mmHg ABG pO2 156 H (80-100) mmHg ABG HCO3 27 H (22-26) mmol/L ABG Total CO2 28 (21-31) mmol/L ABG O2 Saturation 99 (95-100) % ABG Base Excess 0.0 (-2-2) mmol/L FiO2 100 Sodium (137-145) mmol/L Potassium (3.4-5.1) mmol/L Chloride (98-107) mmol/L Carbon Dioxide (22-32) mmol/L BUN (9-20) mg/dL Creatinine (0.66-1.25) mg/dL Estimated GFR (>60) mL/min BUN/Creatinine Ratio (6-22) Glucose (80-110) mg/dL Lactate (0.7-2.1) mmol/L Calcium (8.4-10.2) mg/dL Magnesium (1.6-2.3) mg/dL Total Bilirubin (0.2-1.3) mg/dL AST (17-59) IU/L ALT (<50) IU/L Alkaline Phosphatase (38-126) U/L Total Creatine Kinase (55-170) U/L CK-MB (CK-2) (<2.37) ng/mL CK-MB (CK-2) Rel Index (1.5-5.0) % Troponin I (0.01-0.034) ng/mL NT-Pro-B Natriuret Pep (<125) pg/mL Total Protein (6.3-8.2) g/dL Albumin (3.5-5.0) g/dL Globulin (1.7-4.1) g/dL Albumin/Globulin Ratio (1.0-2.8) Procalcitonin (<0.5) ng/mL Urine Color Yellow Urine Appearance Clear Urine pH 7.0 (4.5-8.0) Ur Specific [place] 1.015 (1.000-1.035) Urine Protein Trace H (Negative) Urine Glucose (UA) Negative (Negative) g/dL Urine Ketones Negative (NEGATIVE) Urine Occult Blood Negative (Negative) Urine Nitrate Negative (Negative) Urine Bilirubin Negative (NEGATIVE) Urine Urobilinogen 0.2 (0.2) E.U./dL Ur Leukocyte Esterase Negative (NEGATIVE) Urine RBC None seen (0-5/HPF) Urine WBC None seen (0-5/HPF) Amorphous Sediment 1+ Urine Bacteria None seen (None) Ur Culture Indicated? Cult not indicated COVID-19 PCR Negative (Negative) Imaging Data Chest x-ray: Radiologist's Impression: [address] [address] XRay Report Signed Patient: Rajesh Celis CMR#: [id number] : 6Acct:[id number] Age/Sex: 74 / MDate of Service: 02/26/20 Loc: ED Accession Number: [id number] Procedure: XR chest 1V Ordering Provider: Kevin Diego MD PROCEDURE: XR CHEST 1V INDICATIONS: dyspnea TECHNIQUE: One view of the chest was acquired. COMPARISON: [facility], CR, XR CHEST 1 VIEW, 01/28/2019, 18:59. [facility], CR, XR CHEST 2V, 10/06/2018, 10:34. FINDINGS: Surgical changes and devices: Pacemaking device with dual chamber leads is present, stable over time. Lungs and pleura: Lungs are abnormal with a patchy bilateral pneumonia pattern diffusely, in the setting of chronic elevation of the right hemidiaphragm. No pleural effusions or pneumothorax. Mediastinum: Mediastinal contours appear normal. Heart size is normal. Bones and chest wall: No suspicious bony lesions. Overlying soft tissues appear unremarkable. IMPRESSION: Patchy bilateral pneumonia in the setting of a patient with chronic elevation of the right diaphragm and a cardiac pacemaking device and dual chamber leads in normal position. Atypical/viral pneumonia should be considered. No pleural effusion seen. Dictated by: Kenrick Guardado M.D. on 02/26/2020 at 9:52 Approved by: Kenrick Guardado M.D. on 02/26/2020 at 9:53 ECG Data Attestation: I personally reviewed and interpreted this ECG as follows: (EKG 1. Paced rhythm rate 70 beats per minute. Probable LVH. No acute ST T wave changes. EKG 2.: Paced rhythm rate 84 beats per minute. No acute ST T wave changes. The waveform is distinctly different than the EKG 1. ) Critical Care Time Critical Care Time Critical Care Time: Yes Total Critical Care Time: 75 Attestation: Clear included initial evaluation of patient,review of lab, radiology and EKG data, multiple clinical decisions, individual consultation with the admitting physician. Care also included continued critical care in the ER prior to admission. The situation was discussed with the patient prior to admission. Discharge Plan Departure Patient Disposition: Admitted As Inpatient Clinical Impression: COPD exacerbation Congestive heart failure Qualifiers: Heart failure type: unspecified Heart failure chronicity: acute on chronic Qualified Code(s): I50.9 - Heart failure, unspecified Community acquired pneumonia Qualifiers: Laterality: unspecified laterality Qualified Code(s): J18.9 - Pneumonia, unspecified organism Discharge Date/Time: 02/26/20 14:25 Admit Date/Time: 02/26/20 12:21 Admit Provider: Sharee Armstrong
[2020-02-26 08:38] LABS: Add Manual Diff / Slide Review NO; Basophils Absolute Auto 100 /uL (0-100); Basophils Percent Auto 0.5 % (0-2); Eosinophils Absolute Auto 200 /uL (0-450); Eosinophils Percent Auto 1.2 % (2-4); Hematocrit 42.2 % (41-53); Hemoglobin 13.7 g/dL (13.5-17.5); Lymphocytes Absolute Auto 2600 /uL (1100-4500); Lymphocytes Percent Auto 16.1 % (25-40); Mean Corpuscular HGB Conc 32.5 % (30-36); Mean Corpuscular Hemoglobin 30.7 PG (26-34); Mean Corpuscular Volume 94.6 fL (80-100); Monocytes Absolute Auto 2100 /uL (0-900); Monocytes Percent Auto 13.1 % (3-14); Neutrophils Absolute Auto 11300 /uL (1500-7000); Neutrophils Percent Auto 69.1 % (50-75); Platelet Count 265 X10^3/uL (150-400); Red Blood Cell Count 4.46 X10^6/uL (4.5-5.9); Red Cell Distribution Width 14.2 % (11.6-14.8); White Blood Cell Count 16.4 X10^3/uL (4.5-11.0)
[2020-02-26 08:46] LABS: INR 1.1 (0.9-1.3)
[2020-02-26 08:49] LABS: Creatine Kinase 125 U/L (55-170); D Dimer 455 ng/mL (<230); Lactate (Lactic Acid) 1.5 mmol/L (0.7-2.1); Magnesium 2.4 mg/dL (1.6-2.3)
[2020-02-26 08:50] LABS: Alanine Aminotransferase 63 IU/L (<50); Albumin 4.4 g/dL (3.5-5.0); Albumin Globulin Ratio 1.4 (1.0-2.8); Alkaline Phosphatase 93 U/L (38-126); Aspartate Aminotransferase 56 IU/L (17-59); BUN Creatinine Ratio 28.3 (6-22); Blood Urea Nitrogen 41 mg/dL (9-20); Calcium 9.5 mg/dL (8.4-10.2); Carbon Dioxide 27 mmol/L (22-32); Chloride 105 mmol/L (98-107); Estimated Glomerular Filt Rate 47.7 mL/min (>60); Globulin 3.2 g/dL (1.7-4.1); Glucose 143 mg/dL (80-110); HEMOLYSIS 21 (0-50); Potassium 4.9 mmol/L (3.4-5.1); Sodium 141 mmol/L (137-145); Total Protein 7.6 g/dL (6.3-8.2)
[2020-02-26] MEDS: ALBUTEROL 0.5% CONTINUOUS NEB 20 MG INH (08:55)
[2020-02-26] MEDS: FUROSEMIDE 40 MG/4 ML VIAL IV ×2 (08:55→09:20)
[2020-02-26] MEDS: NITROGLYCERIN OINT 1 INCH/GM OINT...G. TOP (08:55)
[2020-02-26] MEDS: methylPREDNISolone 125 MG/2 ML VIAL IV (08:55)
[2020-02-26 09:01] LABS: NT-proBNP (BNP-Adult 18+) 1210 pg/mL (<125); Troponin I < 0.012 ng/mL (0.01-0.034)
[2020-02-26 09:04] LABS: CKMB % Relative Index 2.1 % (1.5-5.0); Creatine Kinase MB 2.68 ng/mL (<2.37)
[2020-02-26 09:07] LABS: Procalcitonin < 0.05 ng/mL (<0.5)
[2020-02-26 09:51] LABS: COVID19 -Nasal RAPID Negative (Negative)
[2020-02-26 10:43] LABS: Bacteria Urine None Seen; RBC Urine None Seen (0-5/HPF); WBC Urine None Seen (0-5/HPF)
[2020-02-26 10:46] LABS: Appearance Urine UA CLEAR; Bilirubin Urine UA NEGATIVE (NEGATIVE); Color Urine UA YELLOW; Glucose Urine UA NEGATIVE (Negative); Ketones Urine UA NEGATIVE (NEGATIVE); Leukocyte Esterase Urine UA NEGATIVE (NEGATIVE); Nitrite Urine UA NEGATIVE (Negative); Occult Blood Urine UA NEGATIVE (Negative); Protein Urine UA TRACE (Negative); Specific Gravity Urine UA 1.015 (1.000-1.035); Urobilinogen Urine UA 0.2 E.U./dL (0.2)
[2020-02-26 10:54] LABS: Amorphous Sediment Urine 1+; Culture Indicated Urine Cult Not Indicated
[2020-02-26 11:00] LABS: HCO3 ABG 27 mmol/L (22-26); PCO2 ABG 54.8 mmHg (35-45); PO2 ABG 156 mmHg (80-100); TCO2 ABG 28 mmol/L (21-31)
[2020-02-26 11:01] LABS: Fractionated Inspired Oxygen 100; Oxygen Saturation ABG 99 % (95-100)
[2020-02-26] MEDS: AZITHROMYCIN 500 MG in DEXTROSE 5% IN WATER 250 ML IV (12:13)
[2020-02-26] MEDS: INDOMETHACIN 25 MG CAPSULE 50 MG PO (12:59)
[2020-02-26] MEDS: CEFTRIAXONE 1 GM/50 ML FROZ.PIGGY IV (13:23)
--- NOTE | 2020-02-26 15:14 | PC.ADMIT ---
[email or web address] [facility] [address] Admission Note: The patient,Rajesh Celis,74 y/o, was given written information regarding hospital policies, unit procedures and contact persons. Patient's smoking status: Never smoker. Vital Signs - 8 hr 02/26/20 08:15 02/26/20 08:18 02/26/20 08:30 Temperature 97.5 F L Pulse Rate 71 71 69 Respiratory Rate 35 H 30 H 37 H Blood Pressure 182/118 H 182/118 H 186/87 H Pulse Oximetry 83 L 88 L 95 02/26/20 08:45 02/26/20 09:00 02/26/20 09:06 Temperature Pulse Rate 69 69 69 Respiratory Rate 30 H 31 H 34 H Blood Pressure 198/94 H 193/98 H Pulse Oximetry 100 93 98 02/26/20 09:10 02/26/20 09:15 02/26/20 09:16 Temperature Pulse Rate 69 69 69 Respiratory Rate 33 H 36 H 37 H Blood Pressure 226/103 H 177/80 H Pulse Oximetry 97 99 100 02/26/20 09:30 02/26/20 09:45 02/26/20 10:00 Temperature Pulse Rate 69 69 68 Respiratory Rate 23 22 14 Blood Pressure 162/68 H 174/75 H Pulse Oximetry 99 99 100 02/26/20 10:09 02/26/20 10:15 02/26/20 10:30 Temperature Pulse Rate 69 70 70 Respiratory Rate 25 H 19 19 Blood Pressure 150/84 H 152/89 H 143/70 H Pulse Oximetry 100 99 99 02/26/20 10:45 02/26/20 11:00 02/26/20 11:15 Temperature Pulse Rate 83 73 78 Respiratory Rate 24 10 L 25 H Blood Pressure 139/67 146/70 H 138/77 Pulse Oximetry 95 84 L 93 02/26/20 11:30 02/26/20 11:45 02/26/20 12:00 Temperature Pulse Rate 76 76 77 Respiratory Rate 19 23 23 Blood Pressure 152/82 H 147/81 H 141/77 H Pulse Oximetry 93 94 95 02/26/20 12:15 02/26/20 12:16 02/26/20 12:30 Temperature Pulse Rate 76 78 79 Respiratory Rate 22 26 H 21 Blood Pressure 148/73 H 145/79 H Pulse Oximetry 96 02/26/20 12:45 02/26/20 13:00 02/26/20 13:15 Temperature Pulse Rate 76 79 76 Respiratory Rate 26 H 20 24 Blood Pressure 153/84 H 160/87 H 170/79 H Pulse Oximetry 96 97 97 02/26/20 13:30 02/26/20 13:45 02/26/20 14:00 Temperature Pulse Rate 73 72 80 Respiratory Rate 20 19 26 H Blood Pressure 147/82 H 146/87 H 158/91 H Pulse Oximetry 96 96 96 Rec'd pt to rm 228 from ED via gurney on NC O2. Pt is AAO x4 and making needs known with clear/logical speech. Pt able to scoot from gurney to bed. VSS. SPO2 93% on 2L NC. Admission assessment completed. Oriented to room, call light, fall risk, plan of care. Verbalizes understanding.
--- NOTE | 2020-02-26 18:49 | P.HP_ITS ---
History of Present Illness History of Present Illness Date Patient Seen: 02/26/20 Time Patient Seen: 18:49 Date of Onset of Symptoms: 02/25/20 Chief complaint: SOB Narrative: This is a very pleasant 74-year-old male who is under the primary c are of Dr. Mauricio Quinones in under the cardiology care of Dr. Anita Chandra. He has had a very complicated recent course with difficulty with paroxysmal atrial flutter with a baseline and paroxysmal atrial fibrillation and nonischemic cardiomyopathy. In the last note I have available to me he was seen and flecainide was increased to 150 mg twice daily. He was also increased to labetalol 750 mg twice daily. He apparently was then having low blood pressures and his labetalol was changed to metoprolol succinate 200 mg twice daily this was a week ago. The patient states that over the last couple weeks but it makes more sense that it was really over the last week that have progressively wo rsened in terms of shortness of breath. He has had progressive dyspnea and he was worried last night but went to bed and did notice that his CPAP band was tighter than usual and when he awakened he was horribly dyspneic and really could not ambulated all and 911 was contacted. When he arrived in the emergency department he was on BiPAP with attending L nasal cannula in the 90s O2 sat. Workup revealed evidence of pulmonary infiltrates with possible atypical or viral pneumonia and pulmonary edema with a BNP of 1200 and patient was given IV Lasix, Solu-Medrol, and Rocephin and azithromycin. Since that time the patient has had significant diuresis and he has been weaned to 3 L of nasal cannula and is maintaining his O2 saturations in the mid to high 90s. He is feeling much better and is hungry and is hopeful that he will go home tomorrow. He had an output of 5 L since she received 80 mg of IV Lasix early this morning. He has not had any chest pain he has not had any palpitations. He otherwise has been in his usual state health but does state that over the last 4 days he has had a cough productive of phlegm. He does not know what it looks like. He has also been using his inhaler 2 puffs many times a day over the last 2 weeks and has been helpful for his breathing. He has been more dyspneic with showers of late. Past medical history: Assessment 1. Nonischemic cardiomyopathy his last ejection fraction was 45-50% Assessment 2. Paroxysmal atrial fibrillation with atrial flutter Assessment 3. Hypertension Assessment number for sick sinus syndrome status post dual chamber implant Assessment 5. Chronic anticoagulation with Eliquis Assessment 6. Hyperlipidemia Assessment 7. Chronic kidney disease, stage III, baseline creatinine 1.5 Assessment 8. Obesity Assessment 9. Reactive airway disease Assessment number home COPD Assessment 11. Venous stasis changes due to venous insufficiency Assessment 12. Obstructive sleep apnea Assessment 13. Esophageal reflux Assessment 14. Migraine disorder Assessment 15. Degenerative joint disease Assessment 16. Type 2 diabetes Last echo was December of 2017 Heart catheterization January of 2018 showing no obstructive coronary artery diseas e Past surgical history 1. Cholecystectomy in 1997 2. Abdominal hernia repair in 1999 3. Total right knee replacement 2001 4. Left hip replacement 2003 5. Right hip replacement 2009 6. Left total knee replacement 2013 7. Left patella replacement 2013 8. Pacemaker 11/14/2018 Family history father with coronary artery disease, depression, hypertension, hyperlipidemia, alcohol abuse Mother: Heart disease depression, hypertension, osteoporosis, alcohol abuse Siblings with alcohol abuse, heart disease, deafness, depression, diabetes, hypertension, hyperlipidemia Social history: Patient is his 's name is Jazmin. He lives in [place] with his . 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 He does not use alcohol on regular basis. He has never smoked Review of systems: Negative for cough. Negative for headache. Negative for rash. Negative for URI symptoms. Negative for bright about her rectum or black tarry stools. Negative for chest pain. Negative for palpitations. He has been lightheaded dizzy with a increase in the labetalol. Otherwise review of systems is negative other than HPI Patient History Medical History Anemia (Acute) Diabetes (Chronic) DJD (degenerative joint disease) (Chronic) GERD (gastroesophageal reflux disease) (Chronic) Hemorrhoids (Acute) History of atrial fibrillation (Chronic) History of depression (Chronic) HTN (hypertension) (Chronic) Hx of cardiac pacemaker (Chronic) Hx of cardiovascular disorder (Chronic) Hx of kidney disease (Chronic) Hx of lung disease (Chronic) Hx of obesity (Chronic) Hyperlipidemia (Chronic) Migraine (Chronic) Sleep apnea (Chronic) Surgical History History of total right hip replacement (Resolved) Family & Social History Family History Brother Gallstones Social History: household members spouse Prior Living Arrangements Mobile home Safety & Behavioral: Feels Safe in Current Yes Environment Been Physically Hurt or No Threatened By a Person Suicidal Ideation Description None Suicide Plan Description No Plan Tobacco & Substance use: Smoking Status Never smoker alcohol intake never alcohol intake frequency 0-2 drinks per day Substance Use Type does not use Meds Home Medications and Allergies Home Medications Medication Instructions Recorded Confirmed Type albuterol sulfate 90 mcg/actuation 1 puff INHALATION Q6H PRN 03/04/19 02/26/20 History aerosol inhaler atorvastatin 40 mg tablet 40 mg PO DAILY 03/04/19 02/26/20 History flecainide 100 mg tablet 150 mg PO Q12H 03/04/19 02/26/20 History furosemide 20 mg tablet 40 mg PO DAILY 03/04/19 02/26/20 History indomethacin 50 mg capsule 50 mg PO BID 03/04/19 02/26/20 History tamsulosin [Flomax] 0.4 mg PO DAILY 04/17/19 02/26/20 History Melatonin (with B6) 10 cap/day PO PCHS 02/26/20 02/26/20 History apixaban [Eliquis] 5 mg PO BID 02/26/20 02/26/20 History magnesium chloride 65 mg PO DAILY 02/26/20 02/26/20 History Allergies Allergy/AdvReac Type Severity Reaction Status Date / Time hydrochlorothiazide AdvReac Severe LEG CRAMPS Verified 04/17/19 15:11 [From MAXZIDE] triamterene [From MAXZIDE] AdvReac Severe LEG CRAMPS Verified 04/17/19 15:11 Exam Vital Signs (past 8 hours): - 02/26/20 11:00 02/26/20 11:15 02/26/20 11:30 Temperature Pulse Rate 73 78 76 Respiratory Rate 10 L 25 H 19 Blood Pressure 146/70 H 138/77 152/82 H Pulse Oximetry 84 L 93 93 02/26/20 11:45 02/26/20 12:00 02/26/20 12:15 Temperature Pulse Rate 76 77 76 Respiratory Rate 23 23 22 Blood Pressure 147/81 H 141/77 H Pulse Oximetry 94 95 02/26/20 12:16 02/26/20 12:30 02/26/20 12:45 Temperature Pulse Rate 78 79 76 Respiratory Rate 26 H 21 26 H Blood Pressure 148/73 H 145/79 H 153/84 H Pulse Oximetry 96 96 02/26/20 13:00 02/26/20 13:15 02/26/20 13:30 Temperature Pulse Rate 79 76 73 Respiratory Rate 20 24 20 Blood Pressure 160/87 H 170/79 H 147/82 H Pulse Oximetry 97 97 96 02/26/20 13:45 02/26/20 14:00 02/26/20 14:15 Temperature 98.5 F Pulse Rate 72 80 79 Respiratory Rate 19 26 H 25 H Blood Pressure 146/87 H 158/91 H 130/88 Pulse Oximetry 96 96 93 02/26/20 15:24 02/26/20 15:58 02/26/20 16:05 Temperature 98.2 F Pulse Rate 82 Respiratory Rate 18 24 Blood Pressure 165/97 H Pulse Oximetry 93 Fraction of Inspired Oxygen 30 Oxygen Delivery Method Nasal Cannula Oxygen Flow Rate 2 Narrative Exam Narrative: Alert and oriented x3. Good historian Resting comfortably in hospital bed with 3 L nasal cannula oxygen and not short of breath with talking HEENT: Unremarkable mucous membranes moist and pink Neck: Supple without adenopathy, jugular venous distention or bruits. No masses Chest: Decreased breath sounds bibasilar with some crackles right base but no wheezes. No rhonchi. No cough any Cor: Regular rate and rhythm with distant S1-S2 but no murmur rubs or gallops Abdomen: Positive bowel sounds, soft, nontender, nondistended, no hepatosplenomegaly Obese. No evidence of ascites Extremities: He has trace pitting edema. He has venous stasis changes bilateral lower extremities. Dorsalis pedis posterior tibialis pulses are normal and symmetric Neurologic exam is nonfocal Objective Labs Result Diagrams: 02/26/20 08:20 02/26/20 08:20 Labs: Laboratory Results - last 24 hr 02/26/20 02/26/20 02/26/20 08:20 08:20 08:20 WBC 16.4 H RBC 4.46 L Hgb 13.7 Hct 42.2 MCV 94.6 MCH 30.7 MCHC 32.5 RDW 14.2 Plt Count 265 Neut % (Auto) 69.1 Lymph % (Auto) 16.1 L [place] % (Auto) 13.1 Eos % (Auto) 1.2 L Baso % (Auto) 0.5 Neut # (Auto) 39150 H Lymph # (Auto) 2600 [place] # (Auto) 2100 H Eos # (Auto) 200 Baso # (Auto) 100 PT 13.0 H INR 1.1 D-Dimer 455 H ABG pH ABG pCO2 ABG pO2 ABG HCO3 ABG Total CO2 ABG O2 Saturation ABG Base Excess FiO2 Sodium Potassium Chloride Carbon Dioxide BUN Creatinine Estimated GFR BUN/Creatinine Ratio Glucose Lactate Calcium Magnesium 2.4 H Total Bilirubin AST ALT Alkaline Phosphatase Total Creatine Kinase 125 CK-MB (CK-2) 2.68 H CK-MB (CK-2) Rel Index 2.1 Troponin I < 0.012 NT-Pro-B Natriuret Pep 1210 H Total Protein Albumin Globulin Albumin/Globulin Ratio Procalcitonin Urine Color Urine Appearance Urine pH Ur Specific [place] Urine Protein Urine Glucose (UA) Urine Ketones Urine Occult Blood Urine Nitrate Urine Bilirubin Urine Urobilinogen Ur Leukocyte Esterase Urine RBC Urine WBC Amorphous Sediment Urine Bacteria Ur Culture Indicated? COVID-19 PCR 02/26/20 02/26/20 02/26/20 08:20 08:20 08:20 WBC RBC Hgb Hct MCV MCH MCHC RDW Plt Count Neut % (Auto) Lymph % (Auto) [place] % (Auto) Eos % (Auto) Baso % (Auto) Neut # (Auto) Lymph # (Auto) [place] # (Auto) Eos # (Auto) Baso # (Auto) PT INR D-Dimer ABG pH ABG pCO2 ABG pO2 ABG HCO3 ABG Total CO2 ABG O2 Saturation ABG Base Excess FiO2 Sodium 141 Potassium 4.9 Chloride 105 Carbon Dioxide 27 BUN 41 H Creatinine 1.45 H Estimated GFR 47.7 L BUN/Creatinine Ratio 28.3 H Glucose 143 H Lactate 1.5 Calcium 9.5 Magnesium Total Bilirubin 1.0 AST 56 ALT 63 H Alkaline Phosphatase 93 Total Creatine Kinase CK-MB (CK-2) CK-MB (CK-2) Rel Index Troponin I NT-Pro-B Natriuret Pep Total Protein 7.6 Albumin 4.4 Globulin 3.2 Albumin/Globulin Ratio 1.4 Procalcitonin < 0.05 Urine Color Urine Appearance Urine pH Ur Specific [place] Urine Protein Urine Glucose (UA) Urine Ketones Urine Occult Blood Urine Nitrate Urine Bilirubin Urine Urobilinogen Ur Leukocyte Esterase Urine RBC Urine WBC Amorphous Sediment Urine Bacteria Ur Culture Indicated? COVID-19 PCR 02/26/20 02/26/20 02/26/20 08:20 08:20 08:33 WBC RBC Hgb Hct MCV MCH MCHC RDW Plt Count Neut % (Auto) Lymph % (Auto) [place] % (Auto) Eos % (Auto) Baso % (Auto) Neut # (Auto) Lymph # (Auto) [place] # (Auto) Eos # (Auto) Baso # (Auto) PT INR D-Dimer ABG pH 7.30 L ABG pCO2 54.8 H ABG pO2 156 H ABG HCO3 27 H ABG Total CO2 28 ABG O2 Saturation 99 ABG Base Excess 0.0 FiO2 100 Sodium Potassium Chloride Carbon Dioxide BUN Creatinine Estimated GFR BUN/Creatinine Ratio Glucose Lactate Calcium Magnesium Total Bilirubin AST ALT Alkaline Phosphatase Total Creatine Kinase CK-MB (CK-2) CK-MB (CK-2) Rel Index Troponin I NT-Pro-B Natriuret Pep Total Protein Albumin Globulin Albumin/Globulin Ratio Procalcitonin Urine Color Yellow Urine Appearance Clear Urine pH 7.0 Ur Specific [place] 1.015 Urine Protein Trace H Urine Glucose (UA) Negative Urine Ketones Negative Urine Occult Blood Negative Urine Nitrate Negative Urine Bilirubin Negative Urine Urobilinogen 0.2 Ur Leukocyte Esterase Negative Urine RBC None seen Urine WBC None seen Amorphous Sediment 1+ Urine Bacteria None seen Ur Culture Indicated? Cult not indicated COVID-19 PCR Negative Assessment & Plan Assessment & Plan narrative: 74-year-old male admitted for acute respiratory failure in the face of acute on chronic systolic heart failure with market improvement with IV Lasix. Possible underlying pneumonia. Cover test is negative Assessment 1. Acute respiratory failure suspect secondary to acute on chronic systolic heart failure exacerbation with possible underlying pneumonia. Patient is improved with IV Lasix Plan: Will go ahead and continue with supportive care. I have attempted to call patient's financial wellness coach Dr. Chandra as well as her partner who is on-call ramez Vázquez per seen 0. I am waiting for call back because I am concerned that the change from the labetalol 750 mg twice daily to the metoprolol succinate 200 mg twice daily contributing to his heart failure exacerbation. I need further direction from them in terms of continuing beta-kala. In the meantime we will treat this accordingly with IV diuresis. We will recheck electrolytes and magnesium. I do not see evidence of cardiac ischemia or concern for acute UT with negative troponin we will repeat these in the morning. We will repeat a BNP as well. We will continue with supplemental oxygen. We will D.O. daily w eights and strict I's and O's he does have a catheter in place. If truly his last echo was in 2018 I think that it makes sense to repeat echo. Assessment 2. Possible underlying pneumonia Plan: Covered negative. Sputum culture pending. Respiratory panel pending. We will continue with IV azithromycin and IV Rocephin. Will watch for QT prolongation because of azithromycin and flecainide. Will repeat chest x-ray in morning Assessment 3. P AFib with atrial flutter currently in sinus rhythm Plan: Will continue to monitor with telemetry Will recheck labs tomorrow and closely follow electrolytes Will continue on some type of beta-kala after discussion with Cardiology Will continue on Eliquis anticoagulation Will continue on flecainide Will check thyroid Assessment 4. History of asthma possible COPD. Will use albuterol as needed Assessment 5. Type 2 diabetes apparently diet controlled Plan will monitor blood sugars Assessment 6. GERD Plan: Will place him on Protonix Assessment 7. BPH Plan: Will start him back on his Flomax Assessment 8. Degenerative joint disease Plan: Will treat with Tylenol as needed Assessment 9. Hypertension Plan: Continue as above Code status is DNI Quality VTE Deep Vein Thrombosis/Pulmonary Embolism Present on Admission: No
[2020-02-26 19:28] LABS: Add Manual Diff / Slide Review NO; Basophils Absolute Auto 0 /uL (0-100); Basophils Percent Auto 0.2 % (0-2); Eosinophils Absolute Auto 0 /uL (0-450); Eosinophils Percent Auto 0.1 % (2-4); Hemoglobin 13.5 g/dL (13.5-17.5); Lymphocytes Absolute Auto 900 /uL (1100-4500); Lymphocytes Percent Auto 6.8 % (25-40); Mean Corpuscular Hemoglobin 30.6 PG (26-34); Mean Corpuscular Volume 92.8 fL (80-100); Monocytes Absolute Auto 1100 /uL (0-900); Monocytes Percent Auto 8.4 % (3-14); Neutrophils Absolute Auto 11300 /uL (1500-7000); Neutrophils Percent Auto 84.5 % (50-75); Platelet Count 207 X10^3/uL (150-400); Red Blood Cell Count 4.42 X10^6/uL (4.5-5.9); White Blood Cell Count 13.4 X10^3/uL (4.5-11.0)
[2020-02-26 19:41] LABS: Alanine Aminotransferase 59 IU/L (<50); Albumin 4.1 g/dL (3.5-5.0); Albumin Globulin Ratio 1.3 (1.0-2.8); Alkaline Phosphatase 84 U/L (38-126); Aspartate Aminotransferase 41 IU/L (17-59); BUN Creatinine Ratio 23.3 (6-22); Bilirubin Total 1.1 mg/dL (0.2-1.3); Blood Urea Nitrogen 38 mg/dL (9-20); Calcium 9.7 mg/dL (8.4-10.2); Carbon Dioxide 32 mmol/L (22-32); Chloride 99 mmol/L (98-107); Estimated Glomerular Filt Rate 41.7 mL/min (>60); Globulin 3.1 g/dL (1.7-4.1); Glucose 170 mg/dL (80-110); HEMOLYSIS < 15 (0-50); Magnesium 2.3 mg/dL (1.6-2.3); Potassium 4.9 mmol/L (3.4-5.1); Sodium 140 mmol/L (137-145); Total Protein 7.2 g/dL (6.3-8.2)
[2020-02-26 19:50] LABS: NT-proBNP (BNP-Adult 18+) 3280 pg/mL (<125)
--- NOTE | 2020-02-26 19:54 | PM.HP.1 ---
History of Present Illness History of Present Illness Chief complaint: SOB Narrative: This is a very pleasant 74-year-old male who is under the primary care of Dr. Mauricio Quinones in under the cardiology care of Dr. Anita Chandra. He has had a very complicated recent course with difficulty with paroxysmal atrial flutter with a baseline and paroxysmal atrial fibrillation and nonischemic cardiomyopathy. In the last note I have available to me he was seen and flecainide was increased to 150 mg twice daily. He was also increased to labetalol 750 mg twice daily. He apparently was then having low blood pressures and his labetalol was changed to metoprolol succinate 200 mg twice daily this was a week ago. The patient states that over the last couple weeks but it makes more sense that it was really over the last week that have progressively worsened in terms of shortness of breath. He has had progressive dyspnea and he was worried last night but went to bed and did notice that his CPAP band was tighter than usual and when he awakened he was horribly dyspneic and really could not ambulated all and 911 was contacted. When he arrived in the emergency department he was on BiPAP with attending L nasal cannula in the 90s O2 sat. Workup revealed evidence of pulmonary infiltrates with possible atypical or viral pneumonia and pulmonary edema with a BNP of 1200 and patient was given IV Lasix, Solu-Medrol, and Rocephin and azithromycin. Since that time the patient has had significant diuresis and he has been weaned to 3 L of nasal cannula and is maintaining his O2 saturations in the mid to high 90s. He is feeling much better and is hungry and is hopeful that he will go home tomorrow. He had an output of 5 L since she received 80 mg of IV Lasix early this morning. He has not had any chest pain he has not had any palpitations. He otherwise has been in his usual state health but does state that over the last 4 days he has had a cough productive of phlegm. He does not know what it looks like. He has also been using his inhaler 2 puffs many times a day over the last 2 weeks and has been helpful for his breathing. He has been more dyspneic with showers of late. Past medical history: Assessment 1. Nonischemic cardiomyopathy his last ejection fraction was 45-50% Assessment 2. Paroxysmal atrial fibrillation with atrial flutter Assessment 3. Hypertension Assessment number for sick sinus syndrome status post dual chamber implant Assessment 5. Chronic anticoagulation with Eliquis Assessment 6. Hyperlipidemia Assessment 7. Chronic kidney disease, stage III, baseline creatinine 1.5 Assessment 8. Obesity Assessment 9. Reactive airway disease Assessment number home COPD Assessment 11. Venous stasis changes due to venous insufficiency Assessment 12. Obstructive sleep apnea Assessment 13. Esophageal reflux Assessment 14. Migraine disorder Assessment 15. Degenerative joint disease Assessment 16. Type 2 diabetes Last echo was December of 2017 Heart catheterization January of 2018 showing no obstructive coronary artery disease Past surgical history 1. Cholecystectomy in 1997 2. Abdominal hernia repair in 1999 3. Total right knee replacement 2001 4. Left hip replacement 2003 5. Right hip replacement 2009 6. Left total knee replacement 2013 7. Left patella replacement 2013 8. Pacemaker 11/14/2018 Family history father with coronary artery disease, depression, hypertension, hyperlipidemia, alcohol abuse Mother: Heart disease depression, hypertension, osteoporosis, alcohol abuse Siblings with alcohol abuse, heart disease, deafness, depression, diabetes, hypertension, hyperlipidemia Social history: Patient is his 's name is Jazmin. He lives in [place] with his . 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 He does not use alcohol on regular basis. He has never smoked Review of systems: Negative for cough. Negative for headache. Negative for rash. Negative for URI symptoms. Negative for bright about her rectum or black tarry stools. Negative for chest pain. Negative for palpitations. He has been lightheaded dizzy with a increase in the labetalol. Otherwise review of systems is negative other than HPI Patient History Medical History Anemia (Acute) Diabetes (Chronic) DJD (degenerative joint disease) (Chronic) GERD (gastroesophageal reflux disease) (Chronic) Hemorrhoids (Acute) History of atrial fibrillation (Chronic) History of depression (Chronic) HTN (hypertension) (Chronic) Hx of cardiac pacemaker (Chronic) Hx of cardiovascular disorder (Chronic) Hx of kidney disease (Chronic) Hx of lung disease (Chronic) Hx of obesity (Chronic) Hyperlipidemia (Chronic) Migraine (Chronic) Sleep apnea (Chronic) Surgical History History of total right hip replacement (Resolved) Family & Social History Family History Brother Cari Social History: household members spouse Prior Living Arrangements Mobile home Safety & Behavioral: Feels Safe in Current Yes Environment Been Physically Hurt or No Threatened By a Person Suicidal Ideation Description None Suicide Plan Description No Plan Tobacco & Substance use: Smoking Status Never smoker alcohol intake never alcohol intake frequency 0-2 drinks per day Substance Use Type does not use Meds Home Medications and Allergies Home Medications Medication Instructions Recorded Confirmed Type albuterol sulfate 90 mcg/actuation 1 puff INHALATION Q6H PRN 03/04/19 02/26/20 History aerosol inhaler atorvastatin 40 mg tablet 40 mg PO DAILY 03/04/19 02/26/20 History flecainide 100 mg tablet 150 mg PO Q12H 03/04/19 02/26/20 History furosemide 20 mg tablet 40 mg PO DAILY 03/04/19 02/26/20 History indomethacin 50 mg capsule 50 mg PO BID 03/04/19 02/26/20 History tamsulosin [Flomax] 0.4 mg PO DAILY 04/17/19 02/26/20 History Melatonin (with B6) 10 cap/day PO PCHS 02/26/20 02/26/20 History apixaban [Eliquis] 5 mg PO BID 02/26/20 02/26/20 History magnesium chloride 65 mg PO DAILY 02/26/20 02/26/20 History Allergies Allergy/AdvReac Type Severity Reaction Status Date / Time hydrochlorothiazide AdvReac Severe LEG CRAMPS Verified 04/17/19 15:11 [From MAXZIDE] triamterene [From MAXZIDE] AdvReac Severe LEG CRAMPS Verified 04/17/19 15:11 Exam Vital Signs (past 8 hours): - 02/26/20 12:00 02/26/20 12:15 02/26/20 12:16 Temperature Pulse Rate 77 76 78 Respiratory Rate 23 22 26 H Blood Pressure 141/77 H 148/73 H Pulse Oximetry 95 02/26/20 12:30 02/26/20 12:45 02/26/20 13:00 Temperature Pulse Rate 79 76 79 Respiratory Rate 21 26 H 20 Blood Pressure 145/79 H 153/84 H 160/87 H Pulse Oximetry 96 96 97 02/26/20 13:15 02/26/20 13:30 02/26/20 13:45 Temperature Pulse Rate 76 73 72 Respiratory Rate 24 20 19 Blood Pressure 170/79 H 147/82 H 146/87 H Pulse Oximetry 97 96 96 02/26/20 14:00 02/26/20 14:15 02/26/20 15:24 Temperature 98.5 F Pulse Rate 80 79 Respiratory Rate 26 H 25 H 18 Blood Pressure 158/91 H 130/88 Pulse Oximetry 96 93 02/26/20 15:58 02/26/20 16:05 02/26/20 17:59 Temperature 98.2 F Pulse Rate 82 79 Respiratory Rate 24 18 Blood Pressure 165/97 H 142/76 H Pulse Oximetry 93 92 02/26/20 18:59 Temperature 98.9 F Pulse Rate 76 Respiratory Rate 16 Blood Pressure 170/77 H Pulse Oximetry 95 Fraction of Inspired Oxygen 30 Oxygen Delivery Method Nasal Cannula Oxygen Flow Rate 2 Objective Labs Result Diagrams: 02/26/20 19:20 02/26/20 19:20 Labs: Laboratory Results - last 24 hr 02/26/20 02/26/20 02/26/20 08:20 08:20 08:20 WBC 16.4 H RBC 4.46 L Hgb 13.7 Hct 42.2 MCV 94.6 MCH 30.7 MCHC 32.5 RDW 14.2 Plt Count 265 Neut % (Auto) 69.1 Lymph % (Auto) 16.1 L [place] % (Auto) 13.1 Eos % (Auto) 1.2 L Baso % (Auto) 0.5 Neut # (Auto) 74499 H Lymph # (Auto) 2600 [place] # (Auto) 2100 H Eos # (Auto) 200 Baso # (Auto) 100 PT 13.0 H INR 1.1 D-Dimer 455 H ABG pH ABG pCO2 ABG pO2 ABG HCO3 ABG Total CO2 ABG O2 Saturation ABG Base Excess FiO2 Sodium Potassium Chloride Carbon Dioxide BUN Creatinine Estimated GFR BUN/Creatinine Ratio Glucose Lactate Calcium Magnesium 2.4 H Total Bilirubin AST ALT Alkaline Phosphatase Total Creatine Kinase 125 CK-MB (CK-2) 2.68 H CK-MB (CK-2) Rel Index 2.1 Troponin I < 0.012 NT-Pro-B Natriuret Pep 1210 H Total Protein Albumin Globulin Albumin/Globulin Ratio Procalcitonin Urine Color Urine Appearance Urine pH Ur Specific [place] Urine Protein Urine Glucose (UA) Urine Ketones Urine Occult Blood Urine Nitrate Urine Bilirubin Urine Urobilinogen Ur Leukocyte Esterase Urine RBC Urine WBC Amorphous Sediment Urine Bacteria Ur Culture Indicated? COVID-19 [facility] 02/26/20 02/26/20 02/26/20 08:20 08:20 08:20 WBC RBC Hgb Hct MCV MCH MCHC RDW Plt Count Neut % (Auto) Lymph % (Auto) [place] % (Auto) Eos % (Auto) Baso % (Auto) Neut # (Auto) Lymph # (Auto) [place] # (Auto) Eos # (Auto) Baso # (Auto) PT INR D-Dimer ABG pH ABG pCO2 ABG pO2 ABG HCO3 ABG Total CO2 ABG O2 Saturation ABG Base Excess FiO2 Sodium 141 Potassium 4.9 Chloride 105 Carbon Dioxide 27 BUN 41 H Creatinine 1.45 H Estimated GFR 47.7 L BUN/Creatinine Ratio 28.3 H Glucose 143 H Lactate 1.5 Calcium 9.5 Magnesium Total Bilirubin 1.0 AST 56 ALT 63 H Alkaline Phosphatase 93 Total Creatine Kinase CK-MB (CK-2) CK-MB (CK-2) Rel Index Troponin I NT-Pro-B Natriuret Pep Total Protein 7.6 Albumin 4.4 Globulin 3.2 Albumin/Globulin Ratio 1.4 Procalcitonin < 0.05 Urine Color Urine Appearance Urine pH Ur Specific [place] Urine Protein Urine Glucose (UA) Urine Ketones Urine Occult Blood Urine Nitrate Urine Bilirubin Urine Urobilinogen Ur Leukocyte Esterase Urine RBC Urine WBC Amorphous Sediment Urine Bacteria Ur Culture Indicated? COVID-19 [facility] 02/26/20 02/26/20 02/26/20 08:20 08:20 08:33 WBC RBC Hgb Hct MCV MCH MCHC RDW Plt Count Neut % (Auto) Lymph % (Auto) [place] % (Auto) Eos % (Auto) Baso % (Auto) Neut # (Auto) Lymph # (Auto) [place] # (Auto) Eos # (Auto) Baso # (Auto) PT INR D-Dimer ABG pH 7.30 L ABG pCO2 54.8 H ABG pO2 156 H ABG HCO3 27 H ABG Total CO2 28 ABG O2 Saturation 99 ABG Base Excess 0.0 FiO2 100 Sodium Potassium Chloride Carbon Dioxide BUN Creatinine Estimated GFR BUN/Creatinine Ratio Glucose Lactate Calcium Magnesium Total Bilirubin AST ALT Alkaline Phosphatase Total Creatine Kinase CK-MB (CK-2) CK-MB (CK-2) Rel Index Troponin I NT-Pro-B Natriuret Pep Total Protein Albumin Globulin Albumin/Globulin Ratio Procalcitonin Urine Color Yellow Urine Appearance Clear Urine pH 7.0 Ur Specific [place] 1.015 Urine Protein Trace H Urine Glucose (UA) Negative Urine Ketones Negative Urine Occult Blood Negative Urine Nitrate Negative Urine Bilirubin Negative Urine Urobilinogen 0.2 Ur Leukocyte Esterase Negative Urine RBC None seen Urine WBC None seen Amorphous Sediment 1+ Urine Bacteria None seen Ur Culture Indicated? Cult not indicated COVID-19 PCR Negative 02/26/20 02/26/20 19:20 19:20 WBC 13.4 H RBC 4.42 L Hgb 13.5 Hct 41.0 MCV 92.8 MCH 30.6 MCHC 33.0 RDW 14.0 Plt Count 207 Neut % (Auto) 84.5 H Lymph % (Auto) 6.8 L [place] % (Auto) 8.4 Eos % (Auto) 0.1 L Baso % (Auto) 0.2 Neut # (Auto) 21093 H Lymph # (Auto) 900 L [place] # (Auto) 1100 H Eos # (Auto) 0 Baso # (Auto) 0 PT INR D-Dimer ABG pH ABG pCO2 ABG pO2 ABG HCO3 ABG Total CO2 ABG O2 Saturation ABG Base Excess FiO2 Sodium 140 Potassium 4.9 Chloride 99 Carbon Dioxide 32 BUN 38 H Creatinine 1.63 H Estimated GFR 41.7 L BUN/Creatinine Ratio 23.3 H Glucose 170 H Lactate Calcium 9.7 Magnesium 2.3 Total Bilirubin 1.1 AST 41 ALT 59 H Alkaline Phosphatase 84 Total Creatine Kinase CK-MB (CK-2) CK-MB (CK-2) Rel Index Troponin I NT-Pro-B Natriuret Pep 3280 H Total Protein 7.2 Albumin 4.1 Globulin 3.1 Albumin/Globulin Ratio 1.3 Procalcitonin Urine Color Urine Appearance Urine pH Ur Specific [place] Urine Protein Urine Glucose (UA) Urine Ketones Urine Occult Blood Urine Nitrate Urine Bilirubin Urine Urobilinogen Ur Leukocyte Esterase Urine RBC Urine WBC Amorphous Sediment Urine Bacteria Ur Culture Indicated? COVID-19 PCR Quality VTE Deep Vein Thrombosis/Pulmonary Embolism Present on Admission: No
[2020-02-26] MEDS: APIXABAN 5 MG TABLET PO (21:26)
[2020-02-26] MEDS: ATORVASTATIN 20 MG TABLET 40 MG PO (21:26)
[2020-02-26] MEDS: DOCUSATE 100 MG CAPSULE PO (21:26)
[2020-02-26] MEDS: TAMSULOSIN 0.4 MG CAPSULE PO (21:27)
[2020-02-26] MEDS: FLECAINIDE 100 MG TABLET 150 MG PO (21:27)
[2020-02-26] MEDS: LABETALOL 100 MG TABLET 750 MG PO (21:28)
--- NOTE | 2020-02-26 22:52 | PC.NURSE ---
VS checked after PM dose of Labetalol given, BP 83/43. Dr. Armstrong contacted and orders noted to DC AM dose. Pt is otherwise asymptomatic, alert and responsive.
[2020-02-27] VITALS (8 sets, daily range): BP systolic 91–130; BP diastolic 50–66; PULSE 70–71; RESP 13–18; TEMP 36.1–36.6; O2SAT 92–97
[2020-02-27 05:28] LABS: Creatine Kinase 145 U/L (55-170)
[2020-02-27 05:38] LABS: Troponin I 0.024 ng/mL (0.01-0.034)
[2020-02-27 05:44] LABS: CKMB % Relative Index 1.6 % (1.5-5.0); Creatine Kinase MB 2.38 ng/mL (<2.37)
--- NOTE | 2020-02-27 06:13 | PC.NURSE ---
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 A/V paced with underlying A-fib CVR, BP 91/53, 96/50, 103/56, denies lightheadedness. 400ml clear UOP in [place].
[2020-02-27 07:45] LABS: Enterococcus species Not Detected (Not Detect); Listeria monocytogenes Not Detected (Not Detect)
[2020-02-27 07:46] LABS: Acinetobacter baumannii Not Detected (Not Detect); Candida albicans Not Detected (Not Detect); Candida glabrata Not Detected (Not Detect); Candida krusei Not Detected (Not Detect); Candida parapsilosis Not Detected (Not Detect); Candida tropicalis Not Detected (Not Detect); E. coli Not Detected (Not Detect); Enterobacter cloacae complex Not Detected (Not Detect); Enterobacteriaceae species Not Detected (Not Detect); Haemophilus influenzae Not Detected (Not Detect); Methicillin-resistant gene Detected (Not Detect); Neisseria meningitidis Not Detected (Not Detect); Proteus species Not Detected (Not Detect); Pseudomonas aeruginosa Not Detected (Not Detect); Serratia marcescens Not Detected (Not Detect); Staphylococcus species Detected (Not Detect); Streptococcus agalactiae (Gr B Not Detected (Not Detect); Streptococcus pneumonia Not Detected (Not Detect); Streptococcus pyogenes (Gr A) Not Detected (Not Detect); Streptococcus species Not Detected (Not Detect)
[2020-02-27 07:46] LABS: Alanine Aminotransferase 47 IU/L (<50); Albumin 3.6 g/dL (3.5-5.0); Albumin Globulin Ratio 1.2 (1.0-2.8); Alkaline Phosphatase 75 U/L (38-126); Aspartate Aminotransferase 54 IU/L (17-59); BUN Creatinine Ratio 26.5 (6-22); Bilirubin Total 1.1 mg/dL (0.2-1.3); Blood Urea Nitrogen 45 mg/dL (9-20); Calcium 9.4 mg/dL (8.4-10.2); Carbon Dioxide 31 mmol/L (22-32); Chloride 102 mmol/L (98-107); Estimated Glomerular Filt Rate 39.7 mL/min (>60); Globulin 2.9 g/dL (1.7-4.1); Glucose 124 mg/dL (80-110); HEMOLYSIS 16 (0-50); Potassium 4.3 mmol/L (3.4-5.1); Sodium 138 mmol/L (137-145); Total Protein 6.5 g/dL (6.3-8.2)
[2020-02-27 07:48] LABS: Add Manual Diff / Slide Review NO; Basophils Absolute Auto 0 /uL (0-100); Basophils Percent Auto 0.2 % (0-2); Eosinophils Absolute Auto 0 /uL (0-450); Eosinophils Percent Auto 0.1 % (2-4); Hematocrit 38.1 % (41-53); Hemoglobin 12.3 g/dL (13.5-17.5); Lymphocytes Absolute Auto 1600 /uL (1100-4500); Lymphocytes Percent Auto 11.8 % (25-40); Mean Corpuscular HGB Conc 32.3 % (30-36); Mean Corpuscular Hemoglobin 30.2 PG (26-34); Mean Corpuscular Volume 93.7 fL (80-100); Monocytes Absolute Auto 1700 /uL (0-900); Monocytes Percent Auto 12.2 % (3-14); Neutrophils Absolute Auto 10400 /uL (1500-7000); Neutrophils Percent Auto 75.7 % (50-75); Platelet Count 193 X10^3/uL (150-400); Red Blood Cell Count 4.07 X10^6/uL (4.5-5.9); Red Cell Distribution Width 14.1 % (11.6-14.8); White Blood Cell Count 13.8 X10^3/uL (4.5-11.0)
[2020-02-27 07:55] LABS: NT-proBNP (BNP-Adult 18+) 4010 pg/mL (<125)
--- NOTE | 2020-02-27 08:00 | DI.RAD.S_ITS ---
PROCEDURE: XR CHEST 1V INDICATIONS: respiratory failure TECHNIQUE: One view of the chest was acquired. COMPARISON: [facility], CR, XR CHEST 2V, 10/06/2018, 10:34. [facility], CR, XR CHEST 1V, 02/26/2020, 9:26. FINDINGS: Surgical changes and devices: A pacer device is seen. The leads are seen in stable positions. Lungs and pleura: Minimal interstitial prominence is seen, which is clearly improved compared to the prior examination. There is elevation of the right hemidiaphragm. Mediastinum: The cardiac contours are within normal limits. The aorta demonstrates calcification and tortuosity. Bones and chest wall: Age-appropriate bony degenerative changes are seen. No suspicious bony lesions. Overlying soft tissues appear unremarkable. IMPRESSION: Clear interval improvement in interstitial prominence compared to the prior examination. Stable elevation of the right hemidiaphragm is seen. If there is strong clinical concern for paralysis of this hemidiaphragm, please consider a dedicated fluoroscopic sniff test for further evaluation. Postoperative and degenerative changes are seen. Dictated by: Jean Paul Méndez M.D. on 02/27/2020 at 8:16 Approved by: Jean Paul Méndez M.D. on 02/27/2020 at 8:17
[2020-02-27 08:17] LABS: Thyroid Stimulating Hormone 0.734 uIU/mL (0.47-4.68)
--- NOTE | 2020-02-27 08:50 | PM.PN.1 ---
Subjective Subjective Date Patient Seen: 02/27/20 Time Patient Seen: 08:50 Interval history: CHF. Patient seen this morning. [facility] inpatient Patient feels much better. He says he has feels better now than he has in several days. He had a somewhat did difficult early part of the evening getting used to the BiPAP machine. Normally patient uses CPAP. First 4 hours a somewhat that the most was but then he said the next 4 hours he slept all the way through. He denies any chest pain. Resting quietly in the bed he denies any shortness of breath. No cough no mucus production no chills. He has no abdominal pain. He relates she has not had problems with edema in the past. He wonders were all the fluid came from yesterday. Denies having diabetes but has had a slightly elevated blood sugars in the past. Comfortable with a proposal being transferred to [facility] for cardiac evaluation and perhaps catheterization pending available bed. Exam Vital Signs (past 8 hours): - 02/27/20 02:11 02/27/20 04:00 02/27/20 08:17 Temperature 97.8 F Pulse Rate 71 70 Respiratory Rate 18 Blood Pressure 96/50 L 103/56 L Pulse Oximetry 97 92 97 Fraction of Inspired Oxygen 30 Oxygen Delivery Method Nasal Cannula Oxygen Flow Rate 2 Narrative Exam Narrative: Patient examined hospital bed is resting quietly oxygen on nasal O2 at 2 L. O2 sats approximately 92%. Blood pressure 130/60. Heart rate is approximately 60 in appears to be 100% paced. HEENT is unremarkable chest exam finds expiratory rhonchi on the right left side is clear does not take a deep breath the right because of his elevated diaphragm. Cardiac exam regular rhythm no murmur gallop. Neck veins are flat although because of side difficult to tell. Abdominal exam is benign. Calves are nontender is chronic venous stasis changes of the skin. Hand he has no edema. Objective Labs Result Diagrams: 02/27/20 04:25 02/27/20 04:25 Labs: Laboratory Results - last 24 hr 02/26/20 02/26/20 02/26/20 08:20 08:20 08:20 WBC RBC Hgb Hct MCV MCH MCHC RDW Plt Count Neut % (Auto) Lymph % (Auto) [place] % (Auto) Eos % (Auto) Baso % (Auto) Neut # (Auto) Lymph # (Auto) [place] # (Auto) Eos # (Auto) Baso # (Auto) ABG pH ABG pCO2 ABG pO2 ABG HCO3 ABG Total CO2 ABG O2 Saturation ABG Base Excess FiO2 Sodium Potassium Chloride Carbon Dioxide BUN Creatinine Estimated GFR BUN/Creatinine Ratio Glucose Lactate 1.5 Calcium Magnesium 2.4 H Total Bilirubin AST ALT Alkaline Phosphatase Total Creatine Kinase 125 CK-MB (CK-2) 2.68 H CK-MB (CK-2) Rel Index 2.1 Troponin I < 0.012 NT-Pro-B Natriuret Pep 1210 H Total Protein Albumin Globulin Albumin/Globulin Ratio Procalcitonin < 0.05 TSH Urine Color Urine Appearance Urine pH Ur Specific [place] Urine Protein Urine Glucose (UA) Urine Ketones Urine Occult Blood Urine Nitrate Urine Bilirubin Urine Urobilinogen Ur Leukocyte Esterase Urine RBC Urine WBC Amorphous Sediment Urine Bacteria Ur Culture Indicated? Nasal Screen MRSA (PCR) A. baumannii (PCR) Dina albicans (PCR) C. glabrata (PCR) C. krusei (PCR) C. parapsilosis (PCR) C. tropicalis (PCR) COVID-19 PCR Enterobacteriac sp PCR E. cloacae complex PCR Enterococcus sp PCR E. coli (PCR) H. influenzae (PCR) Klebsiella oxytoca PCR Klebsiella pneumoniae List. monocytogenes PCR N. meningitidis (PCR) Proteus species (PCR) Serratia marcescens PCR Staphylococcus sp PCR Staph aureus (PCR) mecA-Methicil Res Gene Streptococcus sp PCR Group A Strep (PCR) Strep agalactiae (PCR) Strep pneumoniae (PCR) P. aeruginosa (PCR) Aurelia/B-Vanco Res Genes KPC-Carbap Res Gene PCR 02/26/20 02/26/20 02/26/20 08:20 08:20 08:20 WBC RBC Hgb Hct MCV MCH MCHC RDW Plt Count Neut % (Auto) Lymph % (Auto) [place] % (Auto) Eos % (Auto) Baso % (Auto) Neut # (Auto) Lymph # (Auto) [place] # (Auto) Eos # (Auto) Baso # (Auto) ABG pH ABG pCO2 ABG pO2 ABG HCO3 ABG Total CO2 ABG O2 Saturation ABG Base Excess FiO2 Sodium 141 Potassium 4.9 Chloride 105 Carbon Dioxide 27 BUN 41 H Creatinine 1.45 H Estimated GFR 47.7 L BUN/Creatinine Ratio 28.3 H Glucose 143 H Lactate Calcium 9.5 Magnesium Total Bilirubin 1.0 AST 56 ALT 63 H Alkaline Phosphatase 93 Total Creatine Kinase CK-MB (CK-2) CK-MB (CK-2) Rel Index Troponin I NT-Pro-B Natriuret Pep Total Protein 7.6 Albumin 4.4 Globulin 3.2 Albumin/Globulin Ratio 1.4 Procalcitonin TSH Urine Color Yellow Urine Appearance Clear Urine pH 7.0 Ur Specific [place] 1.015 Urine Protein Trace H Urine Glucose (UA) Negative Urine Ketones Negative Urine Occult Blood Negative Urine Nitrate Negative Urine Bilirubin Negative Urine Urobilinogen 0.2 Ur Leukocyte Esterase Negative Urine RBC None seen Urine WBC None seen Amorphous Sediment 1+ Urine Bacteria None seen Ur Culture Indicated? Cult not indicated Nasal Screen MRSA (PCR) A. baumannii (PCR) Dina albicans (PCR) C. glabrata (PCR) C. krusei (PCR) C. parapsilosis (PCR) C. tropicalis (PCR) COVID-19 PCR Negative Enterobacteriac sp PCR E. cloacae complex PCR Enterococcus sp PCR E. coli (PCR) H. influenzae (PCR) Klebsiella oxytoca PCR Klebsiella pneumoniae List. monocytogenes PCR N. meningitidis (PCR) Proteus species (PCR) Serratia marcescens PCR Staphylococcus sp PCR Staph aureus (PCR) mecA-Methicil Res Gene Streptococcus sp PCR Group A Strep (PCR) Strep agalactiae (PCR) Strep pneumoniae (PCR) P. aeruginosa (PCR) Aurelia/B-Vanco Res Genes KPC-Carbap Res Gene PCR 02/26/20 02/26/20 02/26/20 08:33 09:20 14:15 WBC RBC Hgb Hct MCV MCH MCHC RDW Plt Count Neut % (Auto) Lymph % (Auto) [place] % (Auto) Eos % (Auto) Baso % (Auto) Neut # (Auto) Lymph # (Auto) [place] # (Auto) Eos # (Auto) Baso # (Auto) ABG pH 7.30 L ABG pCO2 54.8 H ABG pO2 156 H ABG HCO3 27 H ABG Total CO2 28 ABG O2 Saturation 99 ABG Base Excess 0.0 FiO2 100 Sodium Potassium Chloride Carbon Dioxide BUN Creatinine Estimated GFR BUN/Creatinine Ratio Glucose Lactate Calcium Magnesium Total Bilirubin AST ALT Alkaline Phosphatase Total Creatine Kinase CK-MB (CK-2) CK-MB (CK-2) Rel Index Troponin I NT-Pro-B Natriuret Pep Total Protein Albumin Globulin Albumin/Globulin Ratio Procalcitonin TSH Urine Color Urine Appearance Urine pH Ur Specific [place] Urine Protein Urine Glucose (UA) Urine Ketones Urine Occult Blood Urine Nitrate Urine Bilirubin Urine Urobilinogen Ur Leukocyte Esterase Urine RBC Urine WBC Amorphous Sediment Urine Bacteria Ur Culture Indicated? Nasal Screen MRSA (PCR) Negative for mrsa A. baumannii (PCR) Not detected Dina albicans (PCR) Not detected C. glabrata (PCR) Not detected C. krusei (PCR) Not detected C. parapsilosis (PCR) Not detected C. tropicalis (PCR) Not detected COVID-19 PCR Enterobacteriac sp PCR Not detected E. cloacae complex PCR Not detected Enterococcus sp PCR Not detected E. coli (PCR) Not detected H. influenzae (PCR) Not detected Klebsiella oxytoca PCR Not detected Klebsiella pneumoniae Not detected List. monocytogenes PCR Not detected N. meningitidis (PCR) Not detected Proteus species (PCR) Not detected Serratia marcescens PCR Not detected Staphylococcus sp PCR Detected H Staph aureus (PCR) Not detected mecA-Methicil Res Gene Detected H Streptococcus sp PCR Not detected Group A Strep (PCR) Not detected Strep agalactiae (PCR) Not detected Strep pneumoniae (PCR) Not detected P. aeruginosa (PCR) Not detected Aurelia/B-Vanco Res Genes Not Reportable KPC-Carbap Res Gene PCR Not Reportable 02/26/20 02/26/20 02/27/20 19:20 19:20 04:25 WBC 13.4 H RBC 4.42 L Hgb 13.5 Hct 41.0 MCV 92.8 MCH 30.6 MCHC 33.0 RDW 14.0 Plt Count 207 Neut % (Auto) 84.5 H Lymph % (Auto) 6.8 L [place] % (Auto) 8.4 Eos % (Auto) 0.1 L Baso % (Auto) 0.2 Neut # (Auto) 04690 H Lymph # (Auto) 900 L [place] # (Auto) 1100 H Eos # (Auto) 0 Baso # (Auto) 0 ABG pH ABG pCO2 ABG pO2 ABG HCO3 ABG Total CO2 ABG O2 Saturation ABG Base Excess FiO2 Sodium 140 Potassium 4.9 Chloride 99 Carbon Dioxide 32 BUN 38 H Creatinine 1.63 H Estimated GFR 41.7 L BUN/Creatinine Ratio 23.3 H Glucose 170 H Lactate Calcium 9.7 Magnesium 2.3 Total Bilirubin 1.1 AST 41 ALT 59 H Alkaline Phosphatase 84 Total Creatine Kinase 145 CK-MB (CK-2) 2.38 H CK-MB (CK-2) Rel Index 1.6 Troponin I 0.024 NT-Pro-B Natriuret Pep 3280 H Total Protein 7.2 Albumin 4.1 Globulin 3.1 Albumin/Globulin Ratio 1.3 Procalcitonin TSH Urine Color Urine Appearance Urine pH Ur Specific [place] Urine Protein Urine Glucose (UA) Urine Ketones Urine Occult Blood Urine Nitrate Urine Bilirubin Urine Urobilinogen Ur Leukocyte Esterase Urine RBC Urine WBC Amorphous Sediment Urine Bacteria Ur Culture Indicated? Nasal Screen MRSA (PCR) A. baumannii (PCR) Dina albicans (PCR) C. glabrata (PCR) C. krusei (PCR) C. parapsilosis (PCR) C. tropicalis (PCR) COVID-19 PCR Enterobacteriac sp PCR E. cloacae complex PCR Enterococcus sp PCR E. coli (PCR) H. influenzae (PCR) Klebsiella oxytoca PCR Klebsiella pneumoniae List. monocytogenes PCR N. meningitidis (PCR) Proteus species (PCR) Serratia marcescens PCR Staphylococcus sp PCR Staph aureus (PCR) mecA-Methicil Res Gene Streptococcus sp PCR Group A Strep (PCR) Strep agalactiae (PCR) Strep pneumoniae (PCR) P. aeruginosa (PCR) Aurelia/B-Vanco Res Genes KPC-Carbap Res Gene PCR 02/27/20 02/27/20 02/27/20 04:25 04:25 04:25 WBC 13.8 H RBC 4.07 L Hgb 12.3 L Hct 38.1 L MCV 93.7 MCH 30.2 MCHC 32.3 RDW 14.1 Plt Count 193 Neut % (Auto) 75.7 H Lymph % (Auto) 11.8 L [place] % (Auto) 12.2 Eos % (Auto) 0.1 L Baso % (Auto) 0.2 Neut # (Auto) 56072 H Lymph # (Auto) 1600 [place] # (Auto) 1700 H Eos # (Auto) 0 Baso # (Auto) 0 ABG pH ABG pCO2 ABG pO2 ABG HCO3 ABG Total CO2 ABG O2 Saturation ABG Base Excess FiO2 Sodium 138 Potassium 4.3 Chloride 102 Carbon Dioxide 31 BUN 45 H Creatinine 1.70 H Estimated GFR 39.7 L BUN/Creatinine Ratio 26.5 H Glucose 124 H Lactate Calcium 9.4 Magnesium Total Bilirubin 1.1 AST 54 ALT 47 Alkaline Phosphatase 75 Total Creatine Kinase CK-MB (CK-2) CK-MB (CK-2) Rel Index Troponin I NT-Pro-B Natriuret Pep 4010 H Total Protein 6.5 Albumin 3.6 Globulin 2.9 Albumin/Globulin Ratio 1.2 Procalcitonin TSH Urine Color Urine Appearance Urine pH Ur Specific [place] Urine Protein Urine Glucose (UA) Urine Ketones Urine Occult Blood Urine Nitrate Urine Bilirubin Urine Urobilinogen Ur Leukocyte Esterase Urine RBC Urine WBC Amorphous Sediment Urine Bacteria Ur Culture Indicated? Nasal Screen MRSA (PCR) A. baumannii (PCR) Dina albicans (PCR) C. glabrata (PCR) C. krusei (PCR) C. parapsilosis (PCR) C. tropicalis (PCR) COVID-19 PCR Enterobacteriac sp PCR E. cloacae complex PCR Enterococcus sp PCR E. coli (PCR) H. influenzae (PCR) Klebsiella oxytoca PCR Klebsiella pneumoniae List. monocytogenes PCR N. meningitidis (PCR) Proteus species (PCR) Serratia marcescens PCR Staphylococcus sp PCR Staph aureus (PCR) mecA-Methicil Res Gene Streptococcus sp PCR Group A Strep (PCR) Strep agalactiae (PCR) Strep pneumoniae (PCR) P. aeruginosa (PCR) Aurelia/B-Vanco Res Genes KPC-Carbap Res Gene PCR 02/27/20 04:25 WBC RBC Hgb Hct MCV MCH MCHC RDW Plt Count Neut % (Auto) Lymph % (Auto) [place] % (Auto) Eos % (Auto) Baso % (Auto) Neut # (Auto) Lymph # (Auto) [place] # (Auto) Eos # (Auto) Baso # (Auto) ABG pH ABG pCO2 ABG pO2 ABG HCO3 ABG Total CO2 ABG O2 Saturation ABG Base Excess FiO2 Sodium Potassium Chloride Carbon Dioxide BUN Creatinine Estimated GFR BUN/Creatinine Ratio Glucose Lactate Calcium Magnesium Total Bilirubin AST ALT Alkaline Phosphatase Total Creatine Kinase CK-MB (CK-2) CK-MB (CK-2) Rel Index Troponin I NT-Pro-B Natriuret Pep Total Protein Albumin Globulin Albumin/Globulin Ratio Procalcitonin TSH 0.734 Urine Color Urine Appearance Urine pH Ur Specific [place] Urine Protein Urine Glucose (UA) Urine Ketones Urine Occult Blood Urine Nitrate Urine Bilirubin Urine Urobilinogen Ur Leukocyte Esterase Urine RBC Urine WBC Amorphous Sediment Urine Bacteria Ur Culture Indicated? Nasal Screen MRSA (PCR) A. baumannii (PCR) Dina albicans (PCR) C. glabrata (PCR) C. krusei (PCR) C. parapsilosis (PCR) C. tropicalis (PCR) COVID-19 PCR Enterobacteriac sp PCR E. cloacae complex PCR Enterococcus sp PCR E. coli (PCR) H. influenzae (PCR) Klebsiella oxytoca PCR Klebsiella pneumoniae List. monocytogenes PCR N. meningitidis (PCR) Proteus species (PCR) Serratia marcescens PCR Staphylococcus sp PCR Staph aureus (PCR) mecA-Methicil Res Gene Streptococcus sp PCR Group A Strep (PCR) Strep agalactiae (PCR) Strep pneumoniae (PCR) P. aeruginosa (PCR) Aurelia/B-Vanco Res Genes KPC-Carbap Res Gene PCR labs reviewed. Of significance is white blood cell count still elevated but has decreased, BUN is increased as has creatinine. Patient apparently has had chronic kidney injury in the past. PCR of the bloodstream shows a MRSA present. And the BNP has increased Assessment & Plan Assessment & Plan narrative: 1. Acute respiratory failure secondary to acute on chronic systolic congestive heart failure. He apparently has a history of nonischemic cardiomyopathy. He has responded well to the initial diuresis. Urine output overnight was 400 cc. Urine output so far as 200 cc. Oxygenation appears reasonably controlled with 2 L. feel that he has reasonably well diuresed at this time based on the creatinine increasing. Chest x-ray from my reading did not imply any active congestive heart failure official reading forthcoming. 2. Chest x-ray certainly consistent with atypical pneumonia. He is being treated with azithromycin and ceftriaxone. He had blood cultures drawn PCR that was positive for MRSA. Final determination forthcoming. He is being covered with appropriate medications for same. He is basically asymptomatic referable to this except for the shortness of breath unclear how much this is contributing to his congestive heart failure symptoms. 3. Acute on chronic kidney injury. Creatinine is higher than it has ever been. BUN is increase also implying that perhaps these have been adequately diuresed. We will not give me the IV Lasix at this time perhaps he may need some further on today. 4. Acute decompensation of congestive heart failure. Arrangements have been made to transfer to [facility] under the care of cardiology for further evaluation a perhaps catheterization again. If patient should remain on hospital we will get echocardiogram to get updated study. 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 5. Blood sugar is borderline. Apparently has a diagnosis of ?prediabetes? in the past. 6. Telemetry shows him to be 100% paced at 60. Therefore he does not need any beta-kala at this time is all signs otherwise are stable. Will withhold medication of for the time being. 7. Patient is medically stable to transfer to [facility] at this time Quality VTE Deep Vein Thrombosis/Pulmonary Embolism Present on Admission: No
[2020-02-27] MEDS: SODIUM CHLORIDE 0.9% FLUSH 10 ML IV (09:22)
[2020-02-27] MEDS: ACETAMINOPHEN 325 MG TABLET 650 MG PO (09:24)
[2020-02-27] MEDS: PANTOPRAZOLE 40 MG VIAL IV (09:24)
[2020-02-27] MEDS: TAMSULOSIN 0.4 MG CAPSULE PO (09:24)
[2020-02-27] MEDS: FLECAINIDE 100 MG TABLET 150 MG PO (09:26)
[2020-02-27] MEDS: APIXABAN 5 MG TABLET PO (09:26)
[2020-02-27] MEDS: DOCUSATE 100 MG CAPSULE PO (09:26)
--- NOTE | 2020-02-27 09:29 | CM.DPNOTE ---
DCP Note Reviewed chart. According to DALLAS Hernandez, Dr Sy in today and signed ppk to trnsf patient to [facility] for cardiology. Patient aware and agreeable; now awaiting a bed to open up. This INFORMATION SECURITY MANAGER will remain available in case this plan changes today. VERONIQUE
[2020-02-27] MEDS: CEFTRIAXONE 1 GM/50 ML FROZ.PIGGY IV (11:58)
[2020-02-27] MEDS: AZITHROMYCIN 500 MG in DEXTROSE 5% IN WATER 250 ML IV (12:33)
== END 2020-02-27 13:30 | disposition short-term general hospital (02) | DRG 291 ==
LOC: ED 08:43 → AC 12:21 → ICU 14:54
PROVIDERS: Admitting Provider Family Medicine; Emergency Provider Emergency Medicine; PCP Family Medicine; Referring Provider Emergency Medicine; Visit Provider Family Medicine
DX: I13.0 Hypertensive heart and chronic kidney disease with heart failure and stage 1 through stage 4 chronic kidney disease, or unspecified chronic kidney disease (principal); I50.23 Acute on chronic systolic (congestive) heart failure; J96.00 Acute respiratory failure, unspecified whether with hypoxia or hypercapnia; J18.9 Pneumonia, unspecified organism; I48.92 Unspecified atrial flutter; N17.9 Acute kidney failure, unspecified; I49.5 Sick sinus syndrome; N18.3 Chronic kidney disease, stage 3 (moderate); Z79.01 Long term (current) use of anticoagulants; I48.0 Paroxysmal atrial fibrillation; I42.9 Cardiomyopathy, unspecified; E11.22 Type 2 diabetes mellitus with diabetic chronic kidney disease; J44.9 Chronic obstructive pulmonary disease, unspecified; Z95.0 Presence of cardiac pacemaker; E66.9 Obesity, unspecified; Z68.39 Body mass index [BMI] 39.0-39.9, adult; E78.5 Hyperlipidemia, unspecified; G47.33 Obstructive sleep apnea (adult) (pediatric); I87.2 Venous insufficiency (chronic) (peripheral); K21.9 Gastro-esophageal reflux disease without esophagitis; N40.0 Benign prostatic hyperplasia without lower urinary tract symptoms
CPT/HCPCS: 36415; 36600; 51701; 71045; 80053; 81001; 82550; 82553; 82805; 82962; 83605; 83735; 83880; 84145; 84443; 84484; 85025; 85379; 85610; 87040; 87147; 87150; 87205; 87635; 87797; 93005; 94640; 94660; 94762; 96365; 96367; 96375; 99285; 99291; A9270; C9113; J1940; J2930; J7611